=== PATIENT | male | born 1940 | race Caucasian/White ===

== ENCOUNTER 2016-06-19 14:49 | Outpatient (CLI) | payer MEDICARE, OTHER | END 2016-06-19 23:59 | disposition critical access hospital (66) | DX: R09.89 Other specified symptoms and signs involving the circulatory and respiratory systems (principal); R53.83 Other fatigue | CPT/HCPCS: A0425; A0427 ==

== ENCOUNTER 2016-06-19 15:19 | Inpatient (IN) | payer MEDICARE, OTHER ==
[2016-06-19] MEDS ORDERED: ONDANSETRON 4 MG/2 ML VIAL IVP STA (16:08)
[2016-06-19] MEDS ORDERED: ONDANSETRON 4 MG/2 ML VIAL ONE (16:09)
[2016-06-19] MEDS ORDERED: ALBUTEROL NEB 2.5 MG/3 ML INH STA (16:59)
[2016-06-19] MEDS ORDERED: AZITHROMYCIN INJ 500 MG in SODIUM CHLORIDE 0.9% 250 ML IV STA (17:08)
[2016-06-19] MEDS ORDERED: ACETAMINOPHEN 325 MG TABLET PO PRN (17:08)
[2016-06-19] MEDS ORDERED: IPRATROPIUM/ALBUTEROL 3 ML NEB INH PRN (17:08)
[2016-06-19] MEDS ORDERED: PROCHLORPERAZINE 10 MG/2 ML VIAL IVP PRN (17:08)
[2016-06-19] MEDS ORDERED: oxyCODONE 5 MG TABLET PO PRN ×2 (17:08)
[2016-06-19] MEDS ORDERED: ONDANSETRON 4 MG/2 ML VIAL IVP PRN (17:08)
[2016-06-19] MEDS ORDERED: SODIUM CHLORIDE FLUSH 0.9% 10 ML SYRINGE IVP PRN (17:08)
[2016-06-19] MEDS ORDERED: FUROSEMIDE 20 MG/2 ML VIAL IVP SCH (17:08)
[2016-06-19] MEDS ORDERED: MORPHINE 2 MG/ML SYRINGE IVP PRN (17:08)
[2016-06-19] MEDS ORDERED: LORazepam 2 MG/ML SYRINGE IVP PRN (17:08)
[2016-06-19] MEDS ORDERED: IOPAMIDOL-300 100 ML VIAL IVP ONE (17:56)
[2016-06-19] MEDS: methylPREDNISolone SUCCINATE 40 MG/ML VIAL IVP SCH (18:27)
[2016-06-19] MEDS: IPRATROPIUM/ALBUTEROL 3 ML NEB INH SCH (19:20)
[2016-06-19] MEDS ORDERED: PRAMIPEXOLE 0.25 MG TABLET PO SCH (21:00)
[2016-06-19] MEDS: CHLORHEXIDINE GLUCONATE 15 ML UDC PO SCH (21:06)
[2016-06-19] MEDS ORDERED: traZODone 50 MG TABLET PO SCH (21:24)
[2016-06-19] MEDS: SODIUM CHLORIDE FLUSH 0.9% 10 ML SYRINGE IVP SCH (21:30)
[2016-06-20] MEDS: methylPREDNISolone SUCCINATE 40 MG/ML VIAL IVP SCH ×2 (00:28→05:59)
[2016-06-20] MEDS: IPRATROPIUM/ALBUTEROL 3 ML NEB INH SCH ×2 (01:30→09:50)
[2016-06-20] MEDS ORDERED: NICOTINE 21 MG PATCH TOP ONE (05:54)
[2016-06-20] MEDS ORDERED: PANTOPRAZOLE 40 MG VIAL ONE (05:55)
[2016-06-20] MEDS: SODIUM CHLORIDE FLUSH 0.9% 10 ML SYRINGE IVP SCH (05:59)
[2016-06-20] MEDS ORDERED: PANTOPRAZOLE 40 MG VIAL IVP SCH (07:00)
[2016-06-20] MEDS: CHLORHEXIDINE GLUCONATE 15 ML UDC PO SCH (08:54)
[2016-06-20] MEDS ORDERED: ENOXAPARIN 40 MG/0.4 ML SYRINGE SUBQ SCH (09:00)
[2016-06-20] MEDS ORDERED: AZITHROMYCIN INJ 250 MG in SODIUM CHLORIDE 0.9% 250 ML IV SCH (09:00)
[2016-06-20] MEDS ORDERED: NICOTINE 21 MG PATCH TOP SCH (09:00)
[2016-06-20] MEDS ORDERED: FUROSEMIDE 40 MG/4 ML VIAL IVP SCH (09:00)
[2016-06-20] MEDS ORDERED: traZODone 50 MG TABLET PO SCH ×2 (21:00)
== END 2016-06-20 11:20 | disposition home or self-care (01) | DRG 189 ==
DX: J96.22 Acute and chronic respiratory failure with hypercapnia (principal); J44.9 Chronic obstructive pulmonary disease, unspecified; E87.2 Acidosis; R06.89 Other abnormalities of breathing; D68.9 Coagulation defect, unspecified; F17.200 Nicotine dependence, unspecified, uncomplicated; J44.1 Chronic obstructive pulmonary disease with (acute) exacerbation; I50.1 Left ventricular failure, unspecified; K76.6 Portal hypertension; R18.8 Other ascites; J96.21 Acute and chronic respiratory failure with hypoxia; G89.29 Other chronic pain; I87.2 Venous insufficiency (chronic) (peripheral); T40.2X1A Poisoning by other opioids, accidental (unintentional), initial encounter; Y92.003 Bedroom of unspecified non-institutional (private) residence as the place of occurrence of the external cause; E87.70 Fluid overload, unspecified; I27.2 Other secondary pulmonary hypertension; K76.1 Chronic passive congestion of liver; I73.9 Peripheral vascular disease, unspecified; L89.899 Pressure ulcer of other site, unspecified stage; Z66 Do not resuscitate; Z86.711 Personal history of pulmonary embolism; Z99.81 Dependence on supplemental oxygen; Z89.512 Acquired absence of left leg below knee; Z72.0 Tobacco use; Z91.19 Patient's noncompliance with other medical treatment and regimen

== ENCOUNTER 2016-11-26 10:52 | Outpatient (CLI) | payer MEDICARE, OTHER | END 2016-11-26 10:53 | disposition critical access hospital (66) | LOC: EMS 10:52 | PROVIDERS: ATTEND Surgery | DX: R46.4 Slowness and poor responsiveness (principal); R06.00 Dyspnea, unspecified | CPT/HCPCS: A0425; A0427 ==

== ENCOUNTER 2016-11-26 11:21 | Inpatient (IN) | payer MEDICARE, OTHER ==
[2016-11-26] MEDS ORDERED: IPRATROPIUM/ALBUTEROL 3 ML NEB INH STA (11:28)
[2016-11-26] MEDS ORDERED: FUROSEMIDE 40 MG/4 ML VIAL IVP STA (11:33)
--- NOTE | 2016-11-26 11:35 | ED Physician Documentation ---
History of Present Illness - Stated complaint Stated Complaint: ALOC - Chief complaint Chief Complaint: Resp - History obtained from History obtained from: Patient, Family, EMS - History of Present Illness Timing: Today - Additonal information Additional information: 76-year-old male with severe COPD who is oxygen dependent was in his home this morning found by his family unresponsive. He was sitting in his used easy chair where he had slept the night previously. He does take methadone self medicates with it. In route to the hospital the patient was administered a breathing treatment without significant improvement he did subsequently administered 0.8 of Narcan with some improvement in his level of consciousness and his breathing effort at which time it became evident that he had a lot of rhonchi and wheezes. At that point the patient expressed a wish to .The patient is not forthcoming with information about whether he took more of his medication then he was supposed to. He does indicate maybe. The family does come to the bedside and are able to provide further history. They state that yesterday the patient was up and ambulating he does have a prosthesis for his left leg he had walked down onto the [employer] [place] and walked more than 100 feet yesterday. The family states that he has had similar episode previously and at that time this was related to a bowel obstruction. The family also indicates the patient does not want to be intubated. Review of Systems Unable to obtain: Confused PD PAST MEDICAL HISTORY - Past Medical History Past Medical History: Yes Cardiovascular: Peripheral Vascular Disease, Pulmonary embolism Respiratory: COPD Neuro: None Endocrine/Autoimmune: None GI: GERD, GI bleed, Other : Kidney stones HEENT: Other Psych: Depression, Anxiety Musculoskeletal: Other Derm: Other - Past Surgical History Past Surgical History: Yes General: Appendectomy Ortho: Amputation Cardiovascular: Vascular surgery Derm: Skin grafts - Present Medications Home Medications: Ambulatory Orders Medication Instructions Recorded Confirmed oxyCODONE [Roxicodone] 5 mg PO DAILY 08/13/13 06/19/16 traZODone [Desyrel] 100 mg PO DAILY 08/13/13 06/19/16 Pramipexole Di-HCl [Mirapex] 1.5 mg PO QPM 05/12/14 06/19/16 Clindamycin HCl [Cleocin HCl] 300 mg PO QID #20 capsule 12/16/15 06/19/16 Albuterol Sulf [Ventolin Hfa 06/19/16 Inhaler] Ipratropium/Albuterol Sulfate 06/19/16 [Combivent Respimat Inhal [place]] Morphine ER 15 mg PO TID 06/19/16 06/19/16 Oxandrolone [Oxandrin] 06/19/16 oxyCODONE/ACET 5/325 [Percocet 5 1 tab PO Q4HR PRN 06/19/16 06/19/16 mg/325 mg] Furosemide [Lasix] 40 mg PO DAILY #30 tablet 06/20/16 Spironolactone [Aldactone] 25 mg PO DAILY #30 tablet 06/20/16 - Allergies Allergies/Adverse Reactions: Allergies Allergy/AdvReac Type Severity Reaction Status Date / Time cefazolin sodium * AdvReac Nausea Verified 06/15/15 23:20 [From Ancef] cephalexin monohydrate * AdvReac Nausea Verified 06/15/15 23:20 [From Keflex] doxycycline calcium * AdvReac Nausea Verified 06/15/15 23:20 [From Vibramycin] doxycycline hyclate * AdvReac Nausea Verified 06/15/15 23:20 [From Vibramycin] doxycycline monohydrate * AdvReac Nausea Verified 06/15/15 23:20 [From Vibramycin] - Social History Does the pt smoke?: Yes Smoking Status: Current every day smoker Does the pt drink ETOH?: No Does the pt have substance abuse?: No - Immunizations Immunizations are current?: Yes Immunizations: TDAP >10years/unknown - POLST Patient has POLST: No PD ED PE NORMAL - Vitals Vital signs reviewed: Yes (tachy, tachypneic hypotensive and hypoxic) - General General: Well developed/nourished, Other (76-year-old male with his head slumped down his breathing with audible effort and is minimally responsive. He does indicate that he wants to .) - HEENT HEENT: Atraumatic - Neck Neck: Supple, no meningeal sign - Cardiac Cardiac: Other (tachy to 110) - Respiratory Respiratory: Other (Apnea with in his story crackles at the bases and scattered walk wheezes and rhonchi throughout. He does have diminished breath sounds.) - Abdomen Abdomen: Soft, Non tender - Back Back: No CVA TTP, No spinal TTP - Derm Derm: Normal color, Warm and dry, No rash - Extremities Extremities: Other (There is an [id number] amputation on the left side there is edema to the right lower extremity with some venous stasis disease to the anterior calf on the right side.) - Neuro Neuro: No motor deficit, No sensory deficit Results - Vitals Vitals: Vital Signs - 24 hr 11/26/16 11/26/16 11/26/16 11:22 11:34 11:44 Temperature 36.3 C L Heart Rate 107 H 65 61 Respiratory 40 H 32 H 24 Rate Blood Pressure 116/46 L 95/59 L 71/24 L O2 Saturation 89 L 85 L 93 11/26/16 11/26/16 11/26/16 12:01 12:10 13:19 Temperature 36.5 C Heart Rate 62 61 63 Respiratory 26 H 24 21 Rate Blood Pressure 84/35 L 81/28 L 83/45 L O2 Saturation 94 92 99 11/26/16 13:49 Temperature Heart Rate 63 Respiratory 22 Rate Blood Pressure 84/39 L O2 Saturation 100 Oxygen O2 Source Nasal cannula - EKG (time done) 1139 Rate: Rate (enter#) (64) Rhythm: NSR Intervals: RBBB, Other (borderline short MA) Compare to prior EKG: Unchanged from prior EKG (06-19-16) Computer interpretation: Agree with computer - Labs Labs: Laboratory Tests 11/26/16 11/26/16 11/26/16 11:55 12:25 12:50 WBC 13.0 H RBC 4.54 L Hgb 14.2 Hct 44.3 MCV 97.6 H MCH 31.4 H MCHC 32.1 RDW 15.5 H Plt Count 84 L MPV 8.2 Neut # Not Reportable Lymph # Not Reportable [place] # Not Reportable Eos # Not Reportable Baso # Not Reportable Absolute Nucleated RBC Not Reportable Total Counted 100 Band Neuts % (Manual) 7 Metamyelocytes % 1 H Myelocytes % 3 H Nucleated RBC % Not Reportable Neutrophils # (Manual) 11.4 H Lymphocytes # (Manual) 0.7 L Monocytes # (Manual) 0.4 Differential Comment MANUAL DIFFERENTIAL WBC Morphology 1+ SMUDGE CELLS Platelet Estimate DECREASED (<130,000) Platelet Morphology 1+ GIANT PLATELETS RBC Morph Micro Appear 1+ OVALOCYTES Bld Gas Analysis Time 11:55 ABG pH 7.16 L* ABG pCO2 75 H* ABG pO2 335 H* ABG HCO3 26.2 H ABG Total CO2 28.5 ABG O2 Saturation 99 H ABG Base Excess -4.3 L Elia Test POSITIVE O2 Delivery Device NON REBREATHER MASK O2 Liters/Min 10.00 FiO2 75.00 Sodium Potassium Chloride Carbon Dioxide Anion Gap BUN Creatinine Estimated GFR (MDRD) Glucose Calcium Total Bilirubin AST ALT Alkaline Phosphatase Troponin I Total Protein Albumin Globulin Albumin/Globulin Ratio Lipase Urine Color YELLOW Urine Clarity CLEAR Urine pH 6.0 Ur Specific [place] >=1.030 H Urine Protein 100 H Urine Glucose (UA) NEGATIVE Urine Ketones NEGATIVE Urine Occult Blood SMALL H Urine Nitrite NEGATIVE Urine Bilirubin NEGATIVE Urine Urobilinogen 0.2 (NORMAL) Ur Leukocyte Esterase NEGATIVE Urine RBC TNTC H Urine WBC 11-25 H Ur Epithelial Cells MANY Renal Tubular H Ur Squamous Epith Cells MOD Squamous H Urine Bacteria Few Ur Microscopic Review INDICATED Urine Culture Comments NOT INDICATED 11/26/16 11/26/16 13:12 13:12 WBC RBC Hgb Hct MCV MCH MCHC RDW Plt Count MPV Neut # Lymph # [place] # Eos # Baso # Absolute Nucleated RBC Total Counted Band Neuts % (Manual) Metamyelocytes % Myelocytes % Nucleated RBC % Neutrophils # (Manual) Lymphocytes # (Manual) Monocytes # (Manual) Differential Comment WBC Morphology Platelet Estimate Platelet Morphology RBC Morph Micro Appear Bld Gas Analysis Time ABG pH ABG pCO2 ABG pO2 ABG HCO3 ABG Total CO2 ABG O2 Saturation ABG Base Excess Elia Test O2 Delivery Device O2 Liters/Min FiO2 Sodium 139 Potassium 5.4 H Chloride 97 L Carbon Dioxide 30 Anion Gap 12.0 BUN 29 H Creatinine 1.7 H Estimated GFR (MDRD) 40 L Glucose 108 H Calcium 8.4 L Total Bilirubin 1.2 H AST 1662 H ALT 1937 H Alkaline Phosphatase 80 Troponin I 0.34 Total Protein 6.2 L Albumin 3.6 Globulin 2.6 Albumin/Globulin Ratio 1.4 Lipase 36 Urine Color Urine Clarity Urine pH Ur Specific [place] Urine Protein Urine Glucose (UA) Urine Ketones Urine Occult Blood Urine Nitrite Urine Bilirubin Urine Urobilinogen Ur Leukocyte Esterase Urine RBC Urine WBC Ur Epithelial Cells Ur Squamous Epith Cells Urine Bacteria Ur Microscopic Review Urine Culture Comments - Rads (name of study) 1 view chest Radiology: Prelim report reviewed (Impression: 1. Cardiomegaly with vascular congestion. 2. Airways disease.), EMP read indepedently, See rad report Procedures - IVC sono (time) 1130 Bedside IVC sono: IVC measures (cm) (2.8), High CVP, Fluid overload PD MEDICAL DECISION MAKING - ED course Complexity details: reviewed old records, reviewed results, re-evaluated patient , considered differential, d/w patient ED course: 76-year-old male with advanced COPD appears to have possibly overdosed on narcotic and has significant respiratory depression. He has been given Narcan in the field and he has increased his respiratory rate he is more alert but continues to be altered. As time progresses he improves on his LOC and his breathing is eased. His oxygen is turned down and he continues to have good O2 Sat. He appears overloaded on arrival and he is given IV lasix and a martinez is placed. His LFT's are markedly elevate in the thousands and he does take acetomenophen and a level is ordered. l Departure - Departure Disposition: 66 [facility] DC/Xfer Clinical Impression: Severe chronic obstructive pulmonary disease, Altered level of consciousness Congestive heart failure Qualifiers: Congestive heart failure type: combined Congestive heart failure chronicity: acute on chronic Qualified Code(s): I50.43 - Acute on chronic combined systolic (congestive) and diastolic (congestive) heart failure Urinary tract infection Qualifiers: Urinary tract infection type: acute cystitis Hematuria presence: with hematuria Qualified Code(s): N30.01 - Acute cystitis with hematuria Condition: Serious
[2016-11-26] MEDS ORDERED: IPRATROPIUM/ALBUTEROL 3 ML NEB INH ONE (11:40)
[2016-11-26] MEDS ORDERED: FUROSEMIDE 40 MG/4 ML VIAL ONE (11:42)
[2016-11-26 12:05] LABS: ABG PH 7.16 (7.35-7.45)
[2016-11-26 12:06] LABS: ABG BASE EXCESS -4.3 mmol/L (-2.0-3.0); ABG HCO3 26.2 mmol/L (22.0-26.0); ABG OXYGEN SATURATION 99 % (94-98); ABG TCO2 28.5 MMOL/L (21.0-29.0); ALLEN TEST POSITIVE
[2016-11-26 12:08] LABS: ABG O2 DEVICE NON REBREATHER MASK
[2016-11-26 12:09] LABS: ABG PCO2 75 mmHg (34-45); ABG PO2 335 mmHg (80-100)
[2016-11-26 12:34] LABS: BASOPHILS % (AUTO) 1.4 %; HCT - HEMATOCRIT 44.3 % (42.0-52.0); HGB - HEMOGLOBIN 14.2 g/dL (14.0-18.0); LYMPHOCYTES % (AUTO) 2.9 %; MEAN CORPUSCULAR HEMOGLOBIN 31.4 pg (27.0-31.0); MEAN CORPUSCULAR HGB CONC 32.1 g/dL (32.0-36.0); MEAN CORPUSCULAR VOLUME 97.6 fL (80.0-94.0); MEAN PLATELET VOLUME 8.2 fL (7.4-11.4); MONOCYTES % (AUTO) 2.2 %; NEUTROPHILS % (AUTO) 92.5 %; RED BLOOD COUNT 4.54 10^6/uL (4.70-6.10); RED CELL DISTRIBUTION WIDTH 15.5 % (12.0-15.0)
[2016-11-26 13:01] LABS: BAND NEUTROPHILS % (MANUAL) 7 %; LYMPHOCYTES % (MANUAL) 5 %; NEUTROPHILS % (MANUAL) 81 %; TOTAL CELLS COUNTED 100
[2016-11-26 13:02] LABS: NP AUTO DIFFERENTIAL? YES; NP MAN DIFFERENTIAL? NO; PLATELET ESTIMATE, MANUAL DECREASED (<130,000) (NORMAL); PLATELET MORPHOLOGY 1+ GIANT PLATELETS (NORMAL)
[2016-11-26 13:21] LABS: BILIRUBIN,URINE NEGATIVE (NEGATIVE)
[2016-11-26 13:22] LABS: UA w/ MICROSCOPIC CHARGE YES
[2016-11-26 13:31] LABS: UR CULTURE IF IND NOT INDICATED
--- NOTE | 2016-11-26 13:37 | XRAY Preliminary Report ---
Exam: XR Chest 1 View IMPRESSION: 1. Cardiomegaly with vascular congestion 2. Airways disease [facility] SITE ID: [id number]
[2016-11-26 13:40] LABS: ALBUMIN/GLOBULIN RATIO 1.4 (1.0-2.2); BILIRUBIN,TOTAL 1.2 mg/dL (0.2-1.0); CALCIUM 8.4 mg/dL (8.5-10.3); CREATININE 1.7 mg/dL (0.6-1.2); POTASSIUM 5.4 mmol/L (3.5-5.0); TOTAL PROTEIN 6.2 g/dL (6.7-8.2)
--- NOTE | 2016-11-26 13:40 | XRAY Report ---
EXAM: CHEST RADIOGRAPHY EXAM DATE: 11/26/2016 01:16 PM. CLINICAL HISTORY: Dyspnea. COMPARISON: Chest radiograph 06/20/2016. TECHNIQUE: 1 view. FINDINGS: Lungs/Pleura: Vascular congestion. Increased lung markings. Bronchial cuffing. Subsegmental atelectas is at the left lung base. Mediastinum: Stable, enlarged cardiac silhouette Other: Surgical clips over the left upper quadrant. IMPRESSION: 1. Cardiomegaly with vascular congestion 2. Airways disease [facility] Referring Provider Line: [phone] SITE ID: [id number]
[2016-11-26] MEDS ORDERED: levoFLOXacin 750 MG/150 ML 750 MG/150 ML BAG IV STA (14:04)
[2016-11-26] MEDS ORDERED: levoFLOXacin 750 MG/150 ML 750 MG/150 ML BAG IV ONE (14:10)
[2016-11-26] MEDS ORDERED: IPRATROPIUM 0.2 MG/ML NEB INH PRN (14:31)
[2016-11-26] MEDS ORDERED: PROCHLORPERAZINE 10 MG/2 ML VIAL IVP PRN (14:31)
[2016-11-26] MEDS ORDERED: SODIUM CHLORIDE FLUSH 0.9% 10 ML SYRINGE IVP PRN (14:31)
[2016-11-26] MEDS ORDERED: SODIUM CHLORIDE 0.9% 1,000 ML IV SCH ×3 (15:00→22:59)
[2016-11-26 15:13] LABS: INR 1.5 (0.8-1.2); PT - PROTHROMBIN TIME 16.5 secs (9.9-12.6)
[2016-11-26] MEDS: SODIUM CHLORIDE 0.9% 1,000 ML IV SCH ×3 (18:52→21:23)
--- NOTE | 2016-11-26 19:01 | HISTORY & PHYSICAL EXAMINATION ---
DATE OF ADMISSION: 11/26/2016 HISTORY OF PRESENT ILLNESS: This is a 76-year-old white male with a history of severe COPD requiring BIPAP and oxygen at home at night, history of pulmonary embolism remotely, history of left lower extremity [id number] amputation for venous insufficiency and thrombophlebitis. He also has a history of chronic pain and uses methadone as well as narcotics for pain control and he doses his own medications. The patient was admitted here 5 months ago with "difficulty to arouse" and was felt to be over-medicating himself with his narcotics, he had a COPD exacerbation requiring BiPAP treatment and diagnosed with cor pulmonale, which was determined by echo along with pulmonary hypertension, PA pressure 43 mmHg. At that admission, he was still felt to be volume overloaded and in respiratory distress but demanded to be discharged before he was stabilized. The patient presents now after having been found unresponsive in a recliner by his family. The day before he was able to ambulate, he put on his leg prosthesis and was working around his boat. That is the last thing that he can remember doing (he stated, when I interview him today). Apparently he felt weak after the boat work according to the family's report to the ER doctor, and he was able to go to sleep, but found minimally responsive in his recliner and with a blood pressure of 80 palpable by the ambulance personnel. He received 800 mL of saline in the ambulance. In the emergency room, he was given Narcan and noted to be in severe respiratory distress and required multiple inhaler and nebulizer treatments. He was acidotic and hypercapnic on a blood gas, but this slowly improved over several hours to where he was breathing comfortably, although he was not fully alert and awake. According to the family, there had been no other new symptoms. There were no new medications. There was no recent travel or exposure to anyone that was sick. There was no fever, cough, new leg edema or other complaints, according to the family. MEDICATIONS AT HOME: 1. Albuterol sulfate inhaler, unknown dose. 2. Combivent Respimat inhaler, unknown dosage and frequency. 3. Clindamycin 300 q.i.d. for unknown diagnosis and duration. 4. Lasix 40 mg p.o. daily. 5. Aldactone 25 mg p.o. daily. 6. Methadone unknown dose and frequency 7. Oxandrolone unknown dose and frequency. 8. Percocet 5/325 mg p.o. q.4h. p.r.n.. 9. Mirapex 1.5 mg p.o. q.p.m.. 10. Morphine extended release 15 mg p.o. daily. 11. Oxycodone 5 mg p.o. unknown frequency. 12. Trazadone 100 mg p.o. daily. ALLERGIES: 1. CEFAZOLIN. 2. ALL THE CEPHALOSPORINS. 3. DOXYCYCLINE. THE REACTIONS TO ALL OF THESE MEDICATIONS ARE PROBABLY NAUSEA ACCORDING TO THE ER RECORD. REVIEW OF SYSTEMS: Once the patient was more awake and already in the ICU I was able to complete a comprehensive review of systems and the pertinent positives or negatives are stated in the HPI. The remainder of review of systems is negative. FAMILY HISTORY: The patient's brother had pulmonary embolism. There is no family history of heart disease or diabetes or cancer. SOCIAL HISTORY: The patient smokes half pack a day, he does not use any alcohol or illicit drugs. He lives with his and daughter. PHYSICAL EXAMINATION: GENERAL: In the emergency room when I saw him revealed a blood pressure of 89/ 40 and on repeat 100/40 with pulse of 70-80 in sinus rhythm and the patient was in no respiratory distress. His skin was warm and dry, but he was comatose with nearly no response to sternal rub. In the ICU, approximately 2-1/2 hours later, the patient had a blood pressure of 85/40 with a pulse of 59 in sinus bradycardia with first degree block and intermittent Mobitz I second degree block (Wenckebach block). Skin was warm and dry and he was able to speak, alert and oriented x2 to person and place, but not to time. The skin showed tenting and the oral mucosa was dry. HEENT: Edentulous NECK: No carotid bruits. No thyromegaly. No lymphadenopathy. No JVD at a 90 degree angle (upright). CHEST: Normal breath sounds bilaterally with a scattered wheeze in the right base only. No rhonchi. Heart sounds normal. No audible murmurs. CARDIOVASCULAR: PMI was vertically displaced. There is no gallop and there is no RV heave. No audible murmur. ABDOMEN: Soft, nontender. Positive bowel sounds. No organomegaly. EXTREMITIES: Show the left leg has a BKA and the stump is clean. The right leg has venous stasis changes of the eng and foot and 2+ edema to the mid thighs. He has normal right-sided dorsalis pedis pulse. There is a healed wound over the right mid eng and no skin breakdown. NEUROLOGIC: Neurologically he is now grossly intact on the 2nd exam. LABORATORY: Sodium 139, potassium 5.4, BUN 29, creatinine 1.7 (this compares to May 2016 BUN of 27, creatinine 0.7). His glucose is 108, calcium 8.4, bilirubin 1.2, AST 1662, ALT 1937. Troponin 0.34, lipase normal. Albumin normal at 3.6. White blood count 30.0 with very abnormal differential that was done manually, which shows 1+ smudge cells, 1+ giant platelets, 1+ anisocytosis, 1+ polychromasia, 2+ macrocytosis, and 1+ ovalocytes. The platelet count is very low at 84, which compares to a platelet count in May of this year of 195%. The percent neutrophils is high at 11.4% and he has 7% bands. INR 1.5, which compares to an INR of 1.0 in 05/2016. IMAGING: CHEST X-RAY: Cardiomegaly with atelectasis in the left lung base and vascular congestion. EKG: Normal sinus rhythm with a rate of 64 with first degree block and right bundle branch block and a vertical QRS axis. He has T-wave inversions V1 through V3 and flat T wave in V4. IMPRESSION/DIAGNOSES: 1. Altered mental status, which improved after Narcan and fluid resuscitation for hypotension. 2. Hypotension with evidence of dehydration by virtue of skin tenting, dry oral mucosa, elevated BUN and creatinine. R/O septic shock and cardiogenic shock. 3. History of cor pulmonale by echo done 5 months ago, which may be the cause of the elevated liver tests ie. passive liver congestion, as well as leg edema seen. 4. Thrombocytopenia and abnormal white blood cell morphology - rule out DIC versus acute myelogenous process such as myelodysplastic syndrome vs liver etiology. 5. Acute on chronic respiratory distress with evidence of hypoxemia and hypercapnia, corrected with Narcan administration. 6. Chronic pain with multiple narcotic dosages and Methadone use. The patient has had suspected narcotic overdose in the past. 7. Peripheral vascular disease (unclear if this is arterial or venous) with a left BKA. 8. Abnormal LFT's and elevated bilirubin; consider shock liver vs passsive congestion from cor pulmonale vs toxicity from Tylenol (T & C) use vs gallblader etiology. 9. New renal insufficiency. Possibly from hypotension, dehydration vs hepato- renal syndrome. PLAN: Admit to the ICU in guarded condition. Begin IV fluids, bolus then at a rate of 125 an hour using saline for volume replacement. Hold his diuretics at this time. If saline alone and p.o. intake does not improve his blood pressure then pressors will be needed for hemodynamic support. Culture of the patient, sputum and blood to rule out sepsis as the cause of the hypotension. Cycle cardiac enzymes to rule out acute coronary event as the cause of the hypotension and respiratory failure. Follow his electrolytes, especially the hyperkalemia, follow his renal indices during hydration given the acute renal failure. Follow his CBC and differential. Because of the low platelet count, no Lovenox or heparin will be used for DVT prophylaxis, SCDs will be ordered instead. Hepatitis panel will be sent as well as toxicology screen for acetaminophen given the elevated liver tests. The patient has a DNR AND DNI status, therefore, advanced care planning (ACP) is not necessary at this time. Obtain an echo to evaluate his LV and RV contractility. Only use a portion of his narcotic pain medications, watch for withdrawal from narcotics. JOB #: [id number] EXT JOB #:[id number] ASIM
[2016-11-26] MEDS: PANTOPRAZOLE 40 MG VIAL IVP SCH (20:16)
[2016-11-26] MEDS ORDERED: METHADONE 5 MG TABLET PO ONE (21:00)
[2016-11-26] MEDS ORDERED: MORPHINE ER 15 MG TABLET PO SCH (22:00)
[2016-11-26] MEDS ORDERED: SODIUM CHLORIDE 0.9% 1,000 ML IV ONE (22:18)
[2016-11-26] MEDS: methylPREDNISolone SUCCINATE 40 MG/ML VIAL IVP SCH (22:26)
[2016-11-26] MEDS: SODIUM CHLORIDE FLUSH 0.9% 10 ML SYRINGE IVP SCH (22:26)
[2016-11-27 04:44] LABS: BASOPHILS % (AUTO) 0.2 %; HGB - HEMOGLOBIN 13.2 g/dL (14.0-18.0); LYMPHOCYTES % (AUTO) 2.8 %; MEAN CORPUSCULAR HEMOGLOBIN 31.4 pg (27.0-31.0); MEAN CORPUSCULAR HGB CONC 32.2 g/dL (32.0-36.0); MEAN CORPUSCULAR VOLUME 97.5 fL (80.0-94.0); MEAN PLATELET VOLUME 8.9 fL (7.4-11.4); MONOCYTES % (AUTO) 2.7 %; NEUTROPHILS % (AUTO) 94.3 %; RED CELL DISTRIBUTION WIDTH 15.1 % (12.0-15.0); UNCORRECTED WHITE BLOOD COUNT 10.2 x10^3/uL; WHITE BLOOD COUNT 10.2 x10^3/uL (4.8-10.8)
[2016-11-27 05:23] LABS: BILIRUBIN,DIRECT 0.2 mg/dL (0.1-0.5); BILIRUBIN,TOTAL 0.6 mg/dL (0.2-1.0); BUN - BLOOD UREA NITROGEN 42 mg/dL (6-20); CALCIUM 7.5 mg/dL (8.5-10.3); CARBON DIOXIDE - CO2 28 mmol/L (21-32); CHLORIDE 97 mmol/L (101-111); CREATININE 2.3 mg/dL (0.6-1.2); GFR - MDRD 28 (>89); GLUCOSE 131 mg/dL (70-100); POTASSIUM 5.9 mmol/L (3.5-5.0); SODIUM 132 mmol/L (135-145); TOTAL PROTEIN 6.2 g/dL (6.7-8.2)
[2016-11-27] MEDS ORDERED: ACETYLCYSTEINE IV ONE ×2 (05:30→12:00)
[2016-11-27] MEDS ORDERED: DEXTROSE 5% IV SCH ×3 (05:30→07:30)
[2016-11-27] MEDS ORDERED: ACETYLCYSTEINE IV SCH ×3 (05:30→07:30)
[2016-11-27] MEDS ORDERED: DEXTROSE 5% IV ONE ×2 (05:30→12:00)
[2016-11-27] MEDS ORDERED: DEXTROSE 50% ABBOJECT 25 GM/50 ML SYRINGE IVP SCH (05:34)
[2016-11-27] MEDS ORDERED: CALCIUM GLUCONATE 2,000 MG in SODIUM CHLORIDE 0.9% 100ML 100 ML IV SCH (05:34)
[2016-11-27] MEDS ORDERED: INSULIN REGULAR HUMAN 100 UNIT/1 ML 10 ML MDV IVP SCH (05:34)
[2016-11-27 05:38] LABS: BAND NEUTROPHILS % (MANUAL) 2 %; LYMPHOCYTES % (MANUAL) 1 %; NEUTROPHILS % (MANUAL) 96 %; NP AUTO DIFFERENTIAL? YES; NP MAN DIFFERENTIAL? NO; PLATELET ESTIMATE, MANUAL DECREASED (<130,000) (NORMAL); TOTAL CELLS COUNTED 100
[2016-11-27] MEDS: methylPREDNISolone SUCCINATE 40 MG/ML VIAL IVP SCH ×3 (05:44→21:38)
[2016-11-27] MEDS: SODIUM CHLORIDE FLUSH 0.9% 10 ML SYRINGE IVP SCH ×3 (05:45→21:17)
[2016-11-27] MEDS: SODIUM CHLORIDE 0.9% 1,000 ML IV SCH ×3 (06:05→08:48)
[2016-11-27 06:45] LABS: ALBUMIN/GLOBULIN RATIO 1.4 (1.0-2.2); BILIRUBIN,TOTAL 0.6 mg/dL (0.2-1.0); BUN - BLOOD UREA NITROGEN 38 mg/dL (6-20); CALCIUM 7.5 mg/dL (8.5-10.3); CARBON DIOXIDE - CO2 25 mmol/L (21-32); CHLORIDE 96 mmol/L (101-111); CREATININE 2.2 mg/dL (0.6-1.2); GFR - MDRD 29 (>89); GLUCOSE 127 mg/dL (70-100); MAGNESIUM 1.9 mg/dL (1.7-2.8); PHOSPHORUS 6.9 mg/dL (2.5-4.6); SODIUM 132 mmol/L (135-145)
[2016-11-27 06:49] LABS: CALCIUM, IONIZED 0.96 mmol/L (1.15-1.33); VBG PH 7.243 (7.31-7.41)
--- NOTE | 2016-11-27 08:47 | Ultrasound Preliminary Report ---
Exam: US Abdomen Complete IMPRESSION: 1. Severe gallbladder wall thickening, 13 mm with pattern consistent with edema of the wall. Acute ch olecystitis is a primary consideration. Area of more focal hypodensity within the wall could represen t more prominent edema although possibility of gangrenous gallbladder or intramural abscess are not e xcluded. 2. No gallstones or sonographic Multani sign demonstrated although the patient reportedly is on pain m eds and therefore a negative sonographic Multani sign cannot be excluded. 3. Very mild perihepatic ascites. 4. Mild hepatomegaly with pattern suggesting diffuse fatty infiltration of the liver. [facility] The above findings were discussed with Dr. Story by Dr. Luiz Moe at 08:46 hrs on 11/27/16. SITE ID: [id number]
--- NOTE | 2016-11-27 08:50 | Ultrasound Report ---
EXAM: ABDOMEN ULTRASOUND EXAM DATE: 11/27/2016 07:38 AM. CLINICAL HISTORY: Elevated liver enzymes . COMPARISON: CT abdomen pelvis 06/24/2015. TECHNIQUE: Real-time scanning was performed with static images obtained. FINDINGS: Liver: Diffuse increased echogenicity consistent with fatty infiltration. No mass. Mildly enlarged, 1 8.3 cm. Main portal vein flow: Hepatopetal. Gallbladder: Severe gallbladder wall thickening with edematous/striated appearance, measuring up to 1 3 mm. Area of more focal hypodensity which appears to be within the wall could represent more promine nt focal edema although focal area of gangrenous change or even small intramural abscess cannot defin itely be excluded. No stones demonstrated. No sonographic Multani's sign although the patient reported ly is on pain medications and therefore a false negative sonographic Multani sign cannot be excluded. Biliary System: Common bile duct measures 4.6 mm. No intrahepatic or extrahepatic ductal dilatation. Pancreas: Not visualized, obscured by bowel gas. Kidneys: Right: 12.5 cm longitudinally. Normal. No contour-deforming mass, stones, or hydronephrosis. Left: 12.1 cm longitudinally. Normal. No contour-deforming mass, stones, or hydronephrosis. Spleen: Maximum diameter 10.1 cm. Normal in size and echotexture. Aorta and Inferior Vena Cava: Unremarkable although the distal aorta is not visualized. Other: Very mild ascites near the right hepatic lobe. IMPRESSION: 1. Severe gallbladder wall thickening, 13 mm with pattern consistent with edema of the wall. Acute ch olecystitis is a primary consideration. Area of more focal hypodensity within the wall could represen t more prominent edema although possibility of gangrenous gallbladder or intramural abscess are not e xcluded. 2. No gallstones or sonographic Multani sign demonstrated although the patient reportedly is on pain m eds and therefore a negative sonographic Multani sign cannot be excluded. 3. Very mild perihepatic ascites. 4. Mild hepatomegaly with pattern suggesting diffuse fatty infiltration of the liver. [facility] The above findings were discussed with Dr. Story by Dr. Luiz Moe at 08:46 hrs on 11/27/16. Referring Provider Line: [phone] SITE ID: [id number]
[2016-11-27] MEDS ORDERED: traZODone 50 MG TABLET PO SCH (09:00)
[2016-11-27] MEDS ORDERED: oxyCODONE 5 MG TABLET PO SCH (09:00)
[2016-11-27] MEDS: METHADONE 5 MG TABLET PO SCH (09:31)
--- NOTE | 2016-11-27 09:36 | XRAY Report ---
FRONTAL CHEST: 11/27/2016 CLINICAL INDICATION: Followup COPD. COMPARISON: 11/26/2016 FINDINGS: Frontal view of the chest demonstrates stable cardiomegaly. Pulmonary vascular congestion and COPD are stable. No new consolidation, effusion, or pneumothorax is evident. IMPRESSION: STABLE MILD CONGESTIVE FAILURE AND COPD. JOB #: [id number] EXT JOB #:[id number]
[2016-11-27] MEDS: PANTOPRAZOLE 40 MG VIAL IVP SCH ×2 (09:46→21:13)
--- NOTE | 2016-11-27 11:39 | CONSULTATION NOTE ---
DATE OF CONSULTATION: 11/27/2016 00:00:00 HISTORY OF PRESENT ILLNESS: This is a 76-year-old male who was admitted to the emergency intensive care unit yesterday for altered mental status and hypotension. 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 The patient has been admitted to the intensive care unit for resuscitation and has responded well. His mental status has normalized and his blood pressure is stable. He denies any abdominal pain. He does not remember being brought to the emergency department, but is aware that he was brought by his family because of altered mental status. He acknowledges that he takes large doses of pain medication and believes this is the etiology of his change in mental status. Since admission, he has remained afebrile. He did undergo an ultrasound of the abdomen upon admission secondary to elevated liver enzymes on admission, which demonstrates severe gallbladder wall thickening at 13 mm, concerning for acute cholecystitis. There were no gallstones seen and the CBD measures 4.6 mm and is not dilated. There is no evidence of intra or extrahepatic dilatation. The liver appears enlarged with fatty infiltrates. Surgical consultation was obtained for possible acalculous cholecystitis or gangrenous gallbladder. Upon my evaluation of the patient, he is resting in bed comfortably and denies any abdominal pain, nausea or vomiting. He is hemodynamically stable with a normal blood pressure, normal heart rate and is afebrile. Prior to admission to the ER he denies abdominal pain, nausea or emesis. The patient is also demonstrating elevated troponins, which is concerning for ongoing cardiac ischemic issues. He denies chest pain. PAST MEDICAL HISTORY: Severe COPD on BiPAP, chronic pain on large doses of methadone, history of pulmonary embolism, history of vena caval thrombosis with vena caval ligation ?, history of left BKA, cor pulmonale. PAST SURGICAL HISTORY: As per the patient, he underwent a colon resection with an ostomy followed by ostomy reversal, a repair of an esophageal perforation, a vena caval ligation and an attempt of reversal of this. I do not have any of the surgical records available to me. HOME MEDICATIONS 1. Trazodone 100 mg daily. 2. Percocet 5/325 q.4 hours. 3. Roxicodone 5 mg daily. 4. Spironolactone 25 mg daily. 5. Oxandrolone morphine extended release 15 mg 3 times daily. 6. Ipratropium Albuterol sulfate. 7. Lasix 40 mg daily. 8. Clindamycin 300 mg 4 times daily. 9. Ventolin daily. ALLERGIES TO MEDICATIONS 1. ANCEF. 2. CEPHALEXIN. 3. DOXYCYCLINE. SOCIAL HISTORY: The patient's and daughter are at the bedside. They deny any significant history of alcohol abuse. PHYSICAL EXAMINATION VITAL SIGNS: Temperature is 37.4, blood pressure is 118/101, heart rate 77, respiratory rate is 20, O2 saturation is 92% on 3 liters nasal cannula. GENERAL: The patient is awake, alert, and oriented x3, in no acute distress. He states that he only wants to remain comfortable and does not want any further testing. CARDIOVASCULAR: Regular rate and rhythm. CHEST: Clear to auscultation bilaterally. ABDOMEN: Soft, nondistended, nontender to palpation with negative Multani sign. There is venous congestion on the anterior abdominal wall. EXTREMITIES: Left BKA stump. No pedal edema. LABORATORY VALUES: White blood cell count on admission 13, today 10.2, hemoglobin 13, hematocrit 41, platelets 72. INR on admission 1.5. Sodium 132, potassium 6, chloride 96, bicarbonate 25, BUN 38, creatinine 2.2, increased on admission from 1.7, glucose 127. Total bilirubin 0.6, direct 0.2. AST on admission 1662. Today is greater than 5200. ALT 1937 on admission, today 4486. Alkaline phosphatase is 81. Troponin on admission 0.34. This has progressively increased to 0.66, 1.04, and now 1.26. Lipase is 36. ASSESSMENT: This is a 76-year-old male admitted to the intensive care unit for altered mental status and hypotension with hepatic transaminitis and and acute renal failure. PLAN: The patient has no signs and symptoms to correlate with gangrenous gallbladder or acalculous cholecystitis. He is completely asymptomatic from an abdominal standpoint. His liver enzymes suggest an intrinsic liver disorder. Due to his verbalized history of a ligated inferior vena cava, this could be secondary to hepatic vein thrombosis and this should be ruled out. Other etiologies such as acetaminophen toxicity are possible due to his intake of Percocet daily. In any case, his gallbladder is not likely the source of his liver failure and I do not recommend proceeding with any surgical intervention for this. If further concerns for possible gallbladder etiology a HIDA scan could be ordered. Additionally, an ultrasound documenting hepatic and portal blood flow would be helpful to rule out any venous thrombosis. Renal failure is likely in conjunction with the patient's liver failure. If his renal and liver failure persists, transfer to a center of higher acuity which can accommodate possible dialysis and management of acute liver failure may be warranted. JOB #: [id number] EXT JOB #:[id number] ASIM
[2016-11-27 11:52] LABS: INR 1.7 (0.8-1.2)
[2016-11-27] MEDS: diazePAM 5 MG TABLET PO SCH (13:06)
[2016-11-27] MEDS: IPRATROPIUM/ALBUTEROL 3 ML NEB INH PRN (13:25)
--- NOTE | 2016-11-27 16:09 | PROVIDER PROGRESS NOTE ---
Assessment/Plan - Problem List (1) Hypotension Assessment/Plan: Resolved with approx. 6 L fluid rescusitation. No worsening of respiratory status with this fluid replacement. Diet advanced and no restrictions now that he has his dentures. Will transfer out of ICU. (2) Altered level of consciousness Assessment/Plan: Resolved after Narcan and rehydration (3) Severe chronic obstructive pulmonary disease Assessment/Plan: No SOB at rest. Pt uses BiPAP at hs, was ordered for here Stable respiratory status on present meds, even with 5 L fluid rescusitation ad increase in weight Continue inhalers and steroids (4) Liver failure without hepatic coma Qualifiers: Liver failure chronicity: unspecified chronicity Qualified Code(s): K72.90 - Hepatic failure, unspecified without coma Assessment/Plan: LFTs have quadrupled since yesterday's elevated results. Abd sonogram showed enlarged liver and abnormal GB with very thick hu and poss gangrenous GB Surg consult requested and Dr Scanlon has confirmed that Pt does not have a "hot gallbladder". Pt told Dr Scanlon that he had "IVC ligation and a reversal was attempted but unsuccessful". Dr Scanlon recommended ultrasound of IVC, Hepatic and Portal veins to evaluate for Budd Chiari syndrome. Will order that. Acetylcysteine started for liver failure. If LFTs continue to increase, prognosis is very poor, this was discussed with Pt , and daughter at his bedside. (5) ARF (acute renal failure) Assessment/Plan: Stable but abnormal creat. Poss due to hypotension, hepato-renal or toxicity from something (unclear meds) Continue to monitor. Watch K If renal function worsens, he stated he would not want hemodialysis. (6) Acute non-ST elevation myocardial infarction (NSTEMI) Assessment/Plan: This is likely from demnd ischemia due to hypotension. Echo pending. Now that BP normalized, will start B-1 selective B-vern, Nitrates. No statin due to abnormal LFTs. No ASA due to low and dropping platelets. (7) Chronic pain Assessment/Plan: Pt getting Methadone. Will add Valium, as he requests anxiolytic as well, but watch for respiratory depression. (8) Thrombocytopenia Assessment/Plan: Etiology unclear. Continue to monitor. No Lovenox or ASA due to low plts - Current Meds Current Meds: Current Medications Generic Name Dose Route Start Last Admin Trade Name Freq PRN Reason Stop Dose Admin Albuterol/Ipratropium 3 ml 11/27/16 05:16 11/27/16 13:25 Duoneb INH 3 ml Q4HR PRN Administration Wheezing Diazepam 5 mg 11/27/16 13:00 11/27/16 13:06 Valium PO 5 mg DAILY YANN Administration Acetylcysteine 7,150 mg/ 1,035.75 mls @ 62.5 mls/hr 11/27/16 12:00 11/27/16 12:38 Dextrose IV 11/28/16 04:34 62.5 mls/hr ONCE ONE Administration Sodium Chloride 1,000 mls @ 30 mls/hr 11/27/16 08:39 11/27/16 08:48 Normal Saline 0.9% IV 30 mls/hr .[id number] YANN Administration Methadone HCl 5 mg 11/27/16 09:00 11/27/16 09:31 PO Not Given DAILY YANN Methylprednisolone 40 mg 11/26/16 22:00 11/27/16 14:14 Solu-Medrol (40mg Vial) IVP 40 mg Q8HR YANN Administration Pantoprazole Sodium 40 mg 11/26/16 21:00 11/27/16 09:46 Protonix IVP 40 mg BID YANN Administration Sodium Chloride 10 ml 11/26/16 22:00 11/27/16 14:15 Normal Saline Flush 0.9% IVP 10 ml Q8HR YANN Administration Trazodone HCl 100 mg 11/27/16 09:00 11/27/16 09:31 Desyrel PO Not Given DAILY YANN - Lab Result Fish Bone Diagrams: 11/27/16 04:30 11/27/16 05:54 - Additional Planning My Orders: My Active Orders 11/26/16 18:58 BIPAP [BIPAP/CPAP - RT] [RC] 11/27/16 General Surgery Consult [CONS] Routine Abdomen Limited [US] Routine 11/27/16 03:56 RT [Nebulizer/MDI Tx.] [RC] .q6prn 11/27/16 08:00 Echo Transthoracic Complete [ECHO] Routine 11/27/16 08:39 Sodium Chloride 0.9% [Normal Saline 0.9%] 1,000 ml IV 30 mls/hr 11/27/16 09:00 Methadone 5 mg PO DAILY traZODone [Desyrel] 100 mg PO DAILY 11/27/16 13:00 diazePAM [Valium] 5 mg PO DAILY 11/27/16 21:00 Pramipexole Di-HCl [Mirapex] 1.5 mg PO QPM 11/27/16 Lunch DIET [Soft Mechanical Diet] [DIET] 11/28/16 05:00 CMP, RFLX TO IONIZED CA IF [CHEM] DAILYLAB MAGNESIUM [CHEM] DAILYLAB PHOSPHORUS [CHEM] DAILYLAB Subjective - Subjective Patient Reports: Feeling Better, Other (Pt anxious about his condition and requesting "something for anxiety") Objective Vital Signs: Vital Signs - 24 hr 11/26/16 11/26/16 11/26/16 17:00 18:00 19:00 Temperature 36.6 C Heart Rate Heart Rate [ 66 64 60 Monitoring electrodes] Respiratory 20 16 16 Rate Blood Pressure 91/70 110/97 H 94/62 [Left Brachial artery] Blood Pressure [Right Radial artery] O2 Saturation 96 95 94 11/26/16 11/26/16 11/26/16 20:00 21:00 22:00 Temperature Heart Rate Heart Rate [ 61 61 57 L Monitoring electrodes] Respiratory 19 13 18 Rate Blood Pressure 122/45 L 91/42 L 93/40 L [Left Brachial artery] Blood Pressure [Right Radial artery] O2 Saturation 96 99 98 11/26/16 11/27/16 11/27/16 23:00 00:00 00:30 Temperature 37.1 C Heart Rate Heart Rate [ 58 L 60 Monitoring electrodes] Respiratory 16 18 Rate Blood Pressure 98/65 87/45 L 105/55 L [Left Brachial artery] Blood Pressure [Right Radial artery] O2 Saturation 95 95 11/27/16 11/27/16 11/27/16 01:00 02:00 03:00 Temperature 36.9 C Heart Rate Heart Rate [ 62 60 61 Monitoring electrodes] Respiratory 20 20 13 Rate Blood Pressure 101/54 L 95/50 L 90/56 L [Left Brachial artery] Blood Pressure [Right Radial artery] O2 Saturation 95 94 93 11/27/16 11/27/16 11/27/16 03:50 04:00 05:00 Temperature Heart Rate 60 Heart Rate [ 61 60 Monitoring electrodes] Respiratory 16 18 20 Rate Blood Pressure 98/52 L 102/55 L [Left Brachial artery] Blood Pressure [Right Radial artery] O2 Saturation 98 98 11/27/16 11/27/16 11/27/16 06:00 07:00 07:50 Temperature 37.4 C Heart Rate 80 Heart Rate [ 80 79 Monitoring electrodes] Respiratory 16 20 28 H Rate Blood Pressure 114/57 L 136/60 H [Left Brachial artery] Blood Pressure [Right Radial artery] O2 Saturation 97 93 11/27/16 11/27/16 11/27/16 08:00 09:00 10:00 Temperature Heart Rate Heart Rate [ 73 77 75 Monitoring electrodes] Respiratory 18 20 15 Rate Blood Pressure [Left Brachial artery] Blood Pressure 127/67 118/101 H 140/94 H [Right Radial artery] O2 Saturation 94 92 92 11/27/16 11/27/16 11/27/16 10:59 12:00 13:00 Temperature Heart Rate Heart Rate [ 73 76 80 Monitoring electrodes] Respiratory 18 18 22 Rate Blood Pressure [Left Brachial artery] Blood Pressure 153/70 H 151/64 H 141/73 H [Right Radial artery] O2 Saturation 92 92 97 11/27/16 11/27/16 11/27/16 13:25 14:00 15:00 Temperature 37.2 C Heart Rate 76 Heart Rate [ 80 73 Monitoring electrodes] Respiratory 17 14 24 Rate Blood Pressure [Left Brachial artery] Blood Pressure 141/73 H 145/61 H [Right Radial artery] O2 Saturation 90 L 90 L Oxygen O2 Source Nasal cannula I&O (Last 24 Hrs): Intake and Output Totals x24h 11/25/16 11/26/16 11/27/16 23:59 23:59 23:59 Intake Total 1600 450 Output Total 45 97 Balance 1555 353 General: Alert, Oriented x3 HEENT: Mucous membr. moist/pink Neck: Supple, Other ((+) JVD at 90 degree angle) Cardiovascular: Regular rate Respiratory: Breath sounds nml Abdomen: Soft, No tenderness Extremities: Other (R BKA, L unchanged venous stasis changes and 2+ edema to mid eng) - Results Results: Laboratory Results WBC 10.2 x10^3/uL (4.8-10.8) 11/27/16 04:30 RBC 4.20 10^6/uL (4.70-6.10) L 11/27/16 04:30 Hgb 13.2 g/dL (14.0-18.0) L 11/27/16 04:30 Hct 41.0 % (42.0-52.0) L 11/27/16 04:30 MCV 97.5 fL (80.0-94.0) H 11/27/16 04:30 MCH 31.4 pg (27.0-31.0) H 11/27/16 04:30 MCHC 32.2 g/dL (32.0-36.0) 11/27/16 04:30 RDW 15.1 % (12.0-15.0) H 11/27/16 04:30 Plt Count 72 10^3/uL (130-450) L 11/27/16 04:30 MPV 8.9 fL (7.4-11.4) 11/27/16 04:30 Neut # Not Reportable 11/27/16 04:30 Lymph # Not Reportable 11/27/16 04:30 Cooper # Not Reportable 11/27/16 04:30 Eos # Not Reportable 11/27/16 04:30 Baso # Not Reportable 11/27/16 04:30 Absolute Nucleated RBC Not Reportable 11/27/16 04:30 Total Counted 100 11/27/16 04:30 Band Neuts % (Manual) 2 % (0-10) 11/27/16 04:30 Metamyelocytes % 1 % (-0) H 11/26/16 12:25 Myelocytes % 3 % (-0) H 11/26/16 12:25 Nucleated RBC % Not Reportable 11/27/16 04:30 Neutrophils # (Manual) 10.0 10^3/uL (1.5-6.6) H 11/27/16 04:30 Lymphocytes # (Manual) 0.1 10^3/uL (1.5-3.5) L 11/27/16 04:30 Monocytes # (Manual) 0.1 10^3/uL (0.0-1.0) 11/27/16 04:30 Differential Comment MANUAL DIFFERENTIAL 11/27/16 04:30 WBC Morphology 2+ VACUOLATION (NORMAL) 1+ SMUDGE CELLS (NORMAL) 11/26/16 12:25 WBC Morphology 2+ VACUOLATION (NORMAL) 1+ SMUDGE CELLS (NORMAL) 11/26/16 12:25 Platelet Estimate DECREASED (<130,000) (NORMAL) 11/27/16 04:30 Platelet Morphology 1+ GIANT PLATELETS (NORMAL) 11/26/16 12:25 RBC Morph Micro Appear 1+ ANISOCYTOSIS (NORMAL) 1+ POLYCHROMASIA (NORMAL) 2+ MACROCYTOSIS (NORMAL) 1+ OVALOCYTES (NORMAL) 11/26/16 12:25 RBC Morph Micro Appear 1+ ANISOCYTOSIS (NORMAL) 1+ POLYCHROMASIA (NORMAL) 2+ MACROCYTOSIS (NORMAL) 1+ OVALOCYTES (NORMAL) 11/26/16 12:25 RBC Morph Micro Appear 1+ ANISOCYTOSIS (NORMAL) 1+ POLYCHROMASIA (NORMAL) 2+ MACROCYTOSIS (NORMAL) 1+ OVALOCYTES (NORMAL) 11/26/16 12:25 RBC Morph Micro Appear NORMAL APPEARANCE (NORMAL) 11/27/16 04:30 PT 19.0 secs (9.9-12.6) H 11/27/16 11:26 INR 1.7 (0.8-1.2) H 11/27/16 11:26 Bld Gas Analysis Time 11:55 11/26/16 11:55 ABG pH 7.16 (7.35-7.45) L* 11/26/16 11:55 ABG pCO2 75 mmHg (34-45) H* 11/26/16 11:55 ABG pO2 335 mmHg (80-100) H* 11/26/16 11:55 ABG HCO3 26.2 mmol/L (22.0-26.0) H 11/26/16 11:55 ABG Total CO2 28.5 MMOL/L (21.0-29.0) 11/26/16 11:55 ABG O2 Saturation 99 % (94-98) H 11/26/16 11:55 ABG Base Excess -4.3 mmol/L (-2.0-3.0) L 11/26/16 11:55 Elia Test POSITIVE 11/26/16 11:55 VBG pH 7.243 (7.31-7.41) L 11/27/16 05:54 Ionized Calcium 0.96 mmol/L (1.15-1.33) L 11/27/16 05:54 O2 Delivery Device NON REBREATHER MASK 11/26/16 11:55 O2 Liters/Min 10.00 LPM 11/26/16 11:55 FiO2 75.00 11/26/16 11:55 Sodium 132 mmol/L (135-145) L 11/27/16 05:54 Potassium 6.0 mmol/L (3.5-5.0) H* 11/27/16 05:54 Chloride 96 mmol/L (101-111) L 11/27/16 05:54 Carbon Dioxide 25 mmol/L (21-32) 11/27/16 05:54 Anion Gap 11.0 (6-13) 11/27/16 05:54 BUN 38 mg/dL (6-20) H 11/27/16 05:54 Creatinine 2.2 mg/dL (0.6-1.2) H 11/27/16 05:54 Estimated GFR (MDRD) 29 (>89) L 11/27/16 05:54 Glucose 127 mg/dL (70-100) H 11/27/16 05:54 Calcium 7.5 mg/dL (8.5-10.3) L 11/27/16 05:54 Ionized Calcium YES 11/27/16 05:54 Phosphorus 6.9 mg/dL (2.5-4.6) H 11/27/16 05:54 Magnesium 1.9 mg/dL (1.7-2.8) 11/27/16 05:54 Total Bilirubin 0.6 mg/dL (0.2-1.0) 11/27/16 05:54 Direct Bilirubin 0.2 mg/dL (0.1-0.5) 11/27/16 04:30 AST > 5200 IU/L (10-42) H 11/27/16 05:54 ALT 4486 IU/L (10-60) H 11/27/16 05:54 Alkaline Phosphatase 81 IU/L (42-121) 11/27/16 05:54 Ammonia 22.9 umol/L (7-35) 11/27/16 11:26 Troponin I 1.33 ng/mL (<0.49) H* 11/27/16 11:26 Total Protein 6.0 g/dL (6.7-8.2) L 11/27/16 05:54 Albumin 3.5 g/dL (3.2-5.5) 11/27/16 05:54 Globulin 2.5 g/dL (2.1-4.2) 11/27/16 05:54 Albumin/Globulin Ratio 1.4 (1.0-2.2) 11/27/16 05:54 Lipase 36 U/L (22-51) 11/26/16 13:12 Urine Color YELLOW 11/26/16 12:50 Urine Clarity CLEAR (CLEAR) 11/26/16 12:50 Urine pH 6.0 PH (5.0-7.5) 11/26/16 12:50 Ur Specific [place] >=1.030 (1.002-1.030) H 11/26/16 12:50 Urine Protein 100 mg/dL (NEGATIVE) H 11/26/16 12:50 Urine Glucose (UA) NEGATIVE mg/dL (NEGATIVE) 11/26/16 12:50 Urine Ketones NEGATIVE mg/dL (NEGATIVE) 11/26/16 12:50 Urine Occult Blood SMALL (NEGATIVE) H 11/26/16 12:50 Urine Nitrite NEGATIVE (NEGATIVE) 11/26/16 12:50 Urine Bilirubin NEGATIVE (NEGATIVE) 11/26/16 12:50 Urine Urobilinogen 0.2 (NORMAL) E.U./dL (NORMAL) 11/26/16 12:50 Ur Leukocyte Esterase NEGATIVE (NEGATIVE) 11/26/16 12:50 Urine RBC TNTC /HPF (0-5) H 11/26/16 12:50 Urine WBC 11-25 /HPF (0-3) H 11/26/16 12:50 Ur Epithelial Cells MANY Renal Tubular /HPF (<= Few) H 11/26/16 12:50 Ur Squamous Epith Cells MOD Squamous (<= Few) H 11/26/16 12:50 Urine Bacteria Few /HPF (None Seen) 11/26/16 12:50 Ur Microscopic Review INDICATED 11/26/16 12:50 Urine Culture Comments NOT INDICATED 11/26/16 12:50 Acetaminophen < 10 ug/mL (10-30) L 11/26/16 13:12
--- NOTE | 2016-11-27 16:41 | Ultrasound Preliminary Report ---
Exam: US Abdomen Limited IMPRESSION: Negative hepatic ultrasound. The portal and hepatic veins are patent. [facility] SITE ID: [id number]
--- NOTE | 2016-11-27 16:44 | Ultrasound Report ---
EXAM: ABDOMEN ULTRASOUND LIMITED, RUQ EXAM DATE: 11/27/2016 04:23 PM. CLINICAL HISTORY: Hepatic dysfunction. COMPARISON: None. TECHNIQUE: Real-time scanning was performed with static images obtained. FINDINGS: Liver: Hepatic echotexture is within normal limits. Submitted images of the liver demonstrate no foca l lesions. The left, right, and middle hepatic veins are patent. The IVC is patent. The main portal vein is patent. The left and right portal veins are patent. IMPRESSION: Negative hepatic ultrasound. The portal and hepatic veins are patent. [facility] Referring Provider Line: [phone] SITE ID: [id number]
[2016-11-27] MEDS: METOPROLOL TARTRATE 25 MG TABLET PO SCH ×2 (17:17→21:05)
[2016-11-27] MEDS: ISOSORBIDE MONONITRATE ER 30 MG TABLET PO SCH (17:18)
[2016-11-27] MEDS: PRAMIPEXOLE 0.25 MG TABLET PO SCH (21:10)
[2016-11-28] MEDS: traZODone 50 MG TABLET PO SCH ×3 (00:53→22:33)
[2016-11-28] MEDS: IPRATROPIUM/ALBUTEROL 3 ML NEB INH PRN (01:14)
[2016-11-28] MEDS ORDERED: oxyCODONE 5 MG TABLET PO SCH (01:26)
[2016-11-28] MEDS: methylPREDNISolone SUCCINATE 40 MG/ML VIAL IVP SCH ×2 (05:50→14:39)
[2016-11-28] MEDS: SODIUM CHLORIDE FLUSH 0.9% 10 ML SYRINGE IVP SCH ×2 (05:50→14:41)
[2016-11-28 06:25] LABS: BASOPHILS % (AUTO) 0.2 %; HCT - HEMATOCRIT 36.6 % (42.0-52.0); HGB - HEMOGLOBIN 12.5 g/dL (14.0-18.0); LYMPHOCYTES % (AUTO) 2.5 %; MEAN CORPUSCULAR HEMOGLOBIN 31.9 pg (27.0-31.0); MEAN CORPUSCULAR HGB CONC 34.2 g/dL (32.0-36.0); MEAN CORPUSCULAR VOLUME 93.4 fL (80.0-94.0); MEAN PLATELET VOLUME 8.5 fL (7.4-11.4); NEUTROPHILS % (AUTO) 93.3 %; RED BLOOD COUNT 3.92 10^6/uL (4.70-6.10); RED CELL DISTRIBUTION WIDTH 14.8 % (12.0-15.0); UNCORRECTED WHITE BLOOD COUNT 10.3 x10^3/uL; WHITE BLOOD COUNT 10.3 x10^3/uL (4.8-10.8)
[2016-11-28 06:46] LABS: BAND NEUTROPHILS % (MANUAL) 2 %; LYMPHOCYTES % (MANUAL) 5 %; NEUTROPHILS % (MANUAL) 87 %; NP AUTO DIFFERENTIAL? YES; NP MAN DIFFERENTIAL? NO; PLATELET ESTIMATE, MANUAL DECREASED (<130,000) (NORMAL); TOTAL CELLS COUNTED 100
[2016-11-28 08:47] LABS: ALBUMIN/GLOBULIN RATIO 1.5 (1.0-2.2); BILIRUBIN,TOTAL 0.7 mg/dL (0.2-1.0); BUN - BLOOD UREA NITROGEN 71 mg/dL (6-20); CARBON DIOXIDE - CO2 22 mmol/L (21-32); CHLORIDE 91 mmol/L (101-111); CREATININE 3.8 mg/dL (0.6-1.2); GFR - MDRD 16 (>89); GLUCOSE 121 mg/dL (70-100); PHOSPHORUS 4.8 mg/dL (2.5-4.6); POTASSIUM 5.1 mmol/L (3.5-5.0); SODIUM 129 mmol/L (135-145); TOTAL PROTEIN 5.9 g/dL (6.7-8.2)
[2016-11-28 08:50] LABS: VBG PH 7.26 (7.31-7.41)
[2016-11-28 08:51] LABS: CALCIUM, IONIZED 1.04 mmol/L (1.15-1.33)
[2016-11-28] MEDS: ISOSORBIDE MONONITRATE ER 30 MG TABLET PO SCH (09:41)
[2016-11-28] MEDS: METOPROLOL TARTRATE 25 MG TABLET PO SCH ×2 (09:42→22:32)
[2016-11-28] MEDS: METHADONE 5 MG TABLET PO SCH (09:43)
[2016-11-28] MEDS: PANTOPRAZOLE 40 MG VIAL IVP SCH (14:39)
[2016-11-28] MEDS: SODIUM CHLORIDE 0.9% 1,000 ML IV SCH (18:29)
--- NOTE | 2016-11-28 18:48 | PROVIDER PROGRESS NOTE ---
Assessment/Plan - Problem List (1) Severe chronic obstructive pulmonary disease Assessment/Plan: Stable pulmonary status on current meds iv fell out and could not be restarted. Will change Methylprednisolone to Prednisone 40 mg po daily with a taper planned as outpt. (2) Liver failure without hepatic coma Qualifiers: Liver failure chronicity: unspecified chronicity Qualified Code(s): K72.90 - Hepatic failure, unspecified without coma Assessment/Plan: Improved LFTs on Acetylcysteine and with volume replacement Continue to monitor (3) ARF (acute renal failure) Assessment/Plan: Worsening creat and more eddema of stump and of R leg. Will decrease fluid input [place] labs. Pt has stated he would not want dialysis. (4) Acute non-ST elevation myocardial infarction (NSTEMI) Assessment/Plan: Echo shows nearly normal LVEF. Continue medical management, no angio planned per Pt wishes. (5) Chronic pain Assessment/Plan: Improved with the addition of Valium po. (6) Thrombocytopenia Assessment/Plan: Continued drop in plts. No Lovenox or ASA use due to this. (7) Hypotension Assessment/Plan: Resolved after volume replacement. (8) Altered level of consciousness Assessment/Plan: Resolved. - Current Meds Current Meds: Current Medications Generic Name Dose Route Start Last Admin Trade Name Freq PRN Reason Stop Dose Admin Albuterol/Ipratropium 3 ml 11/27/16 05:16 11/28/16 01:14 Duoneb INH 3 ml Q4HR PRN Administration Wheezing Diazepam 5 mg 11/27/16 13:00 11/27/16 13:06 Valium PO 5 mg DAILY YANN Administration Sodium Chloride 1,000 mls @ 30 mls/hr 11/27/16 08:39 11/28/16 18:29 Normal Saline 0.9% IV Not Given .[id number] YANN Isosorbide Mononitrate 30 mg 11/27/16 17:00 11/28/16 09:41 Imdur PO 30 mg DAILY YANN Administration Methadone HCl 5 mg 11/27/16 09:00 11/28/16 09:43 PO 5 mg DAILY YANN Administration Metoprolol Tartrate 12.5 mg 11/27/16 17:00 11/28/16 09:42 Lopressor PO 12.5 mg BID YANN Administration Pramipexole Dihydrochloride 1.5 mg 11/27/16 21:00 11/27/16 21:10 Mirapex PO 1.5 mg QPM YANN Administration Sodium Chloride 10 ml 11/26/16 22:00 11/28/16 14:41 Normal Saline Flush 0.9% IVP Not Given Q8HR YANN Sodium Chloride 10 ml 11/26/16 14:31 11/27/16 21:13 Normal Saline Flush 0.9% IVP 10 ml PRN PRN Administration NEEDED PER PROVIDER ORDERS - Lab Result Fish Bone Diagrams: 11/28/16 05:55 11/28/16 05:55 - Additional Planning My Orders: My Active Orders 11/27/16 21:00 Pramipexole [Mirapex] 1.5 mg PO QPM 11/29/16 05:00 BMP - BASIC METABOLIC PANEL [CHEM] DAILYLAB 11/29/16 07:00 Pantoprazole [Protonix] 40 mg PO QDAC 11/29/16 08:00 predniSONE [Deltasone] 40 mg PO DAILYWM Subjective - Subjective Patient Reports: Feeling Better Nursing Reports: Other (Leg prosthesis not fitting due to more edema of stump.) Objective Vital Signs: Vital Signs - 24 hr 11/27/16 11/27/16 11/27/16 18:59 19:54 21:05 Temperature 36.9 C Heart Rate Heart Rate [ 68 63 Monitoring electrodes] Respiratory 17 23 Rate Blood Pressure 108/69 Blood Pressure [Left Brachial artery] Blood Pressure 142/69 H 128/67 [Right Radial artery] O2 Saturation 94 92 11/27/16 11/27/16 11/28/16 21:08 23:19 01:15 Temperature 36.6 C Heart Rate 68 Heart Rate [ 69 66 Monitoring electrodes] Respiratory 22 20 18 Rate Blood Pressure Blood Pressure [Left Brachial artery] Blood Pressure 108/69 125/63 [Right Radial artery] O2 Saturation 92 92 11/28/16 11/28/16 11/28/16 05:00 07:58 09:42 Temperature 36.7 C 36.7 C Heart Rate Heart Rate [ 69 65 Monitoring electrodes] Respiratory 20 20 Rate Blood Pressure 133/69 H Blood Pressure 133/69 H [Left Brachial artery] Blood Pressure 131/51 H [Right Radial artery] O2 Saturation 93 93 11/28/16 11/28/16 13:00 16:31 Temperature 36.8 C 36.4 C L Heart Rate Heart Rate [ 58 L 64 Monitoring electrodes] Respiratory 20 18 Rate Blood Pressure Blood Pressure 131/61 H [Left Brachial artery] Blood Pressure 124/61 [Right Radial artery] O2 Saturation 96 96 Oxygen O2 Source Nasal cannula I&O (Last 24 Hrs): Intake and Output Totals x24h 11/26/16 11/27/16 11/28/16 23:59 23:59 23:59 Intake Total 1600 700 400 Output Total 45 247 675 Balance 1555 453 -275 General: Alert, Oriented x3 HEENT: Mucous membr. moist/pink Neck: Supple, No JVD Cardiovascular: No murmurs Respiratory: No respiratory distress Extremities: Other (R leg more edematous, same color) - Results Results: Laboratory Results WBC 10.3 x10^3/uL (4.8-10.8) 11/28/16 05:55 RBC 3.92 10^6/uL (4.70-6.10) L 11/28/16 05:55 Hgb 12.5 g/dL (14.0-18.0) L 11/28/16 05:55 Hct 36.6 % (42.0-52.0) L 11/28/16 05:55 MCV 93.4 fL (80.0-94.0) 11/28/16 05:55 MCH 31.9 pg (27.0-31.0) H 11/28/16 05:55 MCHC 34.2 g/dL (32.0-36.0) 11/28/16 05:55 RDW 14.8 % (12.0-15.0) 11/28/16 05:55 Plt Count 55 10^3/uL (130-450) L 11/28/16 05:55 MPV 8.5 fL (7.4-11.4) 11/28/16 05:55 Neut # Not Reportable 11/28/16 05:55 Lymph # Not Reportable 11/28/16 05:55 [place] # Not Reportable 11/28/16 05:55 Eos # Not Reportable 11/28/16 05:55 Baso # Not Reportable 11/28/16 05:55 Absolute Nucleated RBC Not Reportable 11/28/16 05:55 Total Counted 100 11/28/16 05:55 Band Neuts % (Manual) 2 % (0-10) 11/28/16 05:55 Metamyelocytes % 1 % (-0) H 11/26/16 12:25 Myelocytes % 3 % (-0) H 11/26/16 12:25 Nucleated RBC % Not Reportable 11/28/16 05:55 Neutrophils # (Manual) 9.2 10^3/uL (1.5-6.6) H 11/28/16 05:55 Lymphocytes # (Manual) 0.5 10^3/uL (1.5-3.5) L 11/28/16 05:55 Monocytes # (Manual) 0.6 10^3/uL (0.0-1.0) 11/28/16 05:55 Differential Comment MANUAL DIFFERENTIAL 11/28/16 05:55 WBC Morphology 2+ VACUOLATION (NORMAL) 1+ SMUDGE CELLS (NORMAL) 11/26/16 12:25 WBC Morphology 2+ VACUOLATION (NORMAL) 1+ SMUDGE CELLS (NORMAL) 11/26/16 12:25 Platelet Estimate DECREASED (<130,000) (NORMAL) 11/28/16 05:55 Platelet Morphology 1+ GIANT PLATELETS (NORMAL) 11/26/16 12:25 RBC Morph Micro Appear 1+ ANISOCYTOSIS (NORMAL) 1+ POLYCHROMASIA (NORMAL) 2+ MACROCYTOSIS (NORMAL) 1+ OVALOCYTES (NORMAL) 11/26/16 12:25 RBC Morph Micro Appear 1+ ANISOCYTOSIS (NORMAL) 1+ POLYCHROMASIA (NORMAL) 2+ MACROCYTOSIS (NORMAL) 1+ OVALOCYTES (NORMAL) 11/26/16 12:25 RBC Morph Micro Appear NORMAL APPEARANCE (NORMAL) 11/27/16 04:30 RBC Morph Micro Appear NORMAL APPEARANCE (NORMAL) 11/28/16 05:55 PT 19.0 secs (9.9-12.6) H 11/27/16 11:26 INR 1.7 (0.8-1.2) H 11/27/16 11:26 Bld Gas Analysis Time 11:55 11/26/16 11:55 ABG pH 7.16 (7.35-7.45) L* 11/26/16 11:55 ABG pCO2 75 mmHg (34-45) H* 11/26/16 11:55 ABG pO2 335 mmHg (80-100) H* 11/26/16 11:55 ABG HCO3 26.2 mmol/L (22.0-26.0) H 11/26/16 11:55 ABG Total CO2 28.5 MMOL/L (21.0-29.0) 11/26/16 11:55 ABG O2 Saturation 99 % (94-98) H 11/26/16 11:55 ABG Base Excess -4.3 mmol/L (-2.0-3.0) L 11/26/16 11:55 Elia Test POSITIVE 11/26/16 11:55 VBG pH 7.260 (7.31-7.41) L 11/28/16 05:55 Ionized Calcium 1.04 mmol/L (1.15-1.33) L 11/28/16 05:55 O2 Delivery Device NON REBREATHER MASK 11/26/16 11:55 O2 Liters/Min 10.00 LPM 11/26/16 11:55 FiO2 75.00 11/26/16 11:55 Sodium 129 mmol/L (135-145) L 11/28/16 05:55 Potassium 5.1 mmol/L (3.5-5.0) H 11/28/16 05:55 Chloride 91 mmol/L (101-111) L 11/28/16 05:55 Carbon Dioxide 22 mmol/L (21-32) 11/28/16 05:55 Anion Gap 16.0 (6-13) H 11/28/16 05:55 BUN 71 mg/dL (6-20) H 11/28/16 05:55 Creatinine 3.8 mg/dL (0.6-1.2) H 11/28/16 05:55 Estimated GFR (MDRD) 16 (>89) L 11/28/16 05:55 Glucose 121 mg/dL (70-100) H 11/28/16 05:55 Calcium 8.0 mg/dL (8.5-10.3) L 11/28/16 05:55 Ionized Calcium YES 11/28/16 05:55 Phosphorus 4.8 mg/dL (2.5-4.6) H 11/28/16 05:55 Magnesium 2.0 mg/dL (1.7-2.8) 11/28/16 05:55 Total Bilirubin 0.7 mg/dL (0.2-1.0) 11/28/16 05:55 Direct Bilirubin 0.2 mg/dL (0.1-0.5) 11/27/16 04:30 AST 2221 IU/L (10-42) H 11/28/16 05:55 ALT 3614 IU/L (10-60) H 11/28/16 05:55 Alkaline Phosphatase 78 IU/L (42-121) 11/28/16 05:55 Ammonia 22.9 umol/L (7-35) 11/27/16 11:26 Troponin I 0.75 ng/mL (<0.49) H* 11/28/16 05:55 Total Protein 5.9 g/dL (6.7-8.2) L 11/28/16 05:55 Albumin 3.5 g/dL (3.2-5.5) 11/28/16 05:55 Globulin 2.4 g/dL (2.1-4.2) 11/28/16 05:55 Albumin/Globulin Ratio 1.5 (1.0-2.2) 11/28/16 05:55 Lipase 36 U/L (22-51) 11/26/16 13:12 Urine Color YELLOW 11/26/16 12:50 Urine Clarity CLEAR (CLEAR) 11/26/16 12:50 Urine pH 6.0 PH (5.0-7.5) 11/26/16 12:50 Ur Specific [place] >=1.030 (1.002-1.030) H 11/26/16 12:50 Urine Protein 100 mg/dL (NEGATIVE) H 11/26/16 12:50 Urine Glucose (UA) NEGATIVE mg/dL (NEGATIVE) 11/26/16 12:50 Urine Ketones NEGATIVE mg/dL (NEGATIVE) 11/26/16 12:50 Urine Occult Blood SMALL (NEGATIVE) H 11/26/16 12:50 Urine Nitrite NEGATIVE (NEGATIVE) 11/26/16 12:50 Urine Bilirubin NEGATIVE (NEGATIVE) 11/26/16 12:50 Urine Urobilinogen 0.2 (NORMAL) E.U./dL (NORMAL) 11/26/16 12:50 Ur Leukocyte Esterase NEGATIVE (NEGATIVE) 11/26/16 12:50 Urine RBC TNTC /HPF (0-5) H 11/26/16 12:50 Urine WBC 11-25 /HPF (0-3) H 11/26/16 12:50 Ur Epithelial Cells MANY Renal Tubular /HPF (<= Few) H 11/26/16 12:50 Ur Squamous Epith Cells MOD Squamous (<= Few) H 11/26/16 12:50 Urine Bacteria Few /HPF (None Seen) 11/26/16 12:50 Ur Microscopic Review INDICATED 11/26/16 12:50 Urine Culture Comments NOT INDICATED 11/26/16 12:50 Acetaminophen < 10 ug/mL (10-30) L 11/26/16 13:12 Hepatitis A IgM Ab NON-REACTIVE (NON-REACTIVE) 11/27/16 05:54 Hep Bs Antigen NON-REACTIVE (NON-REACTIVE) 11/27/16 05:54 Hep B Core IgM Ab NON-REACTIVE (NON-REACTIVE) 11/27/16 05:54 Hepatitis C Antibody NON-REACTIVE (NON-REACTIVE) 11/27/16 05:54 Hep C Ab Signal/Cutoff 0.00 (<1.00) 11/27/16 05:54
[2016-11-28] MEDS: PRAMIPEXOLE 0.25 MG TABLET PO SCH (22:33)
[2016-11-29] MEDS: PANTOPRAZOLE 40 MG TABLET PO SCH (06:29)
[2016-11-29 07:10] LABS: CALCIUM 7.9 mg/dL (8.5-10.3); CREATININE 5.1 mg/dL (0.6-1.2); POTASSIUM 5.6 mmol/L (3.5-5.0)
[2016-11-29] MEDS: POLYETHYLENE GLYCOL 3350 17 GM PACKET PO SCH (08:58)
[2016-11-29] MEDS: METOPROLOL TARTRATE 25 MG TABLET PO SCH ×2 (08:59→20:40)
[2016-11-29] MEDS: predniSONE 20 MG TABLET PO SCH (08:59)
[2016-11-29] MEDS: DOCUSATE SODIUM 250 MG CAPSULE PO SCH (09:00)
[2016-11-29] MEDS: METHADONE 5 MG TABLET PO SCH (09:00)
[2016-11-29] MEDS: diazePAM 5 MG TABLET PO SCH (09:01)
[2016-11-29] MEDS: ISOSORBIDE MONONITRATE ER 30 MG TABLET PO SCH (09:01)
[2016-11-29] MEDS: SENNA 8.6 MG TABLET PO SCH (09:01)
--- NOTE | 2016-11-29 11:46 | PROVIDER PROGRESS NOTE ---
Subjective - General Admit Date: 11/26/16 Objective - Patient Data Vital Signs: Vital Signs x48h Temp Pulse Pulse Resp BP BP Pulse Ox 11/29/16 09:30 63 18 11/29/16 08:59 139/57 H 11/29/16 08:19 36.4 C L 67 18 139/57 H 96 11/29/16 05:39 36.4 C L 64 18 148/69 H 96 Weight: Weight 11/27/16 11/28/16 11/29/16 23:59 23:59 23:59 Weight (kg) 80.399 kg 80.6 kg 82.463 kg Intake & Output: Intake and Output Totals x24h 11/27/16 11/28/16 11/29/16 23:59 23:59 23:59 Intake Total 700 600 200 Output Total 247 675 700 Balance 453 -69 -154 - Lab Results Lab Results: 11/28/16 05:55 11/29/16 06:05 Other Lab Results: Lab Results x24hrs 11/29/16 11/27/16 Range/Units 06:05 05:54 Sodium 130 L (135-145) mmol/L Potassium 5.6 H (3.5-5.0) mmol/L Chloride 91 L (101-111) mmol/L Carbon Dioxide 22 (21-32) mmol/L Anion Gap 17.0 H (6-13) BUN 90 H* (6-20) mg/dL Creatinine 5.1 H (0.6-1.2) mg/dL Estimated GFR (MDRD) 11 L (>89) Glucose 103 H (70-100) mg/dL Calcium 7.9 L (8.5-10.3) mg/dL Hepatitis A IgM Ab NON-REACTIVE (NON-REACTIVE) Hep Bs Antigen NON-REACTIVE (NON-REACTIVE) Hep B Core IgM Ab NON-REACTIVE (NON-REACTIVE) Hepatitis C Antibody NON-REACTIVE (NON-REACTIVE) Hep C Ab Signal/Cutoff 0.00 (<1.00) - Current Medications Current Medications: Current Medications Generic Name Dose Route Start Last Admin Trade Name Freq PRN Reason Stop Dose Admin Albuterol/Ipratropium 3 ml 11/27/16 05:16 11/28/16 01:14 Duoneb INH 3 ml Q4HR PRN Administration Wheezing Diazepam 5 mg 11/27/16 13:00 11/29/16 09:01 Valium PO 5 mg DAILY YANN Administration Docusate Sodium 250 - 500 mg 11/29/16 09:00 11/29/16 09:00 Colace 250mg Capsule PO 250 mg DAILY YANN Administration Isosorbide Mononitrate 30 mg 11/27/16 17:00 11/29/16 09:01 Imdur PO 30 mg DAILY YANN Administration Methadone HCl 5 mg 11/27/16 09:00 11/29/16 09:00 PO 5 mg DAILY YANN Administration Metoprolol Tartrate 12.5 mg 11/27/16 17:00 11/29/16 08:59 Lopressor PO 12.5 mg BID YANN Administration Pantoprazole Sodium 40 mg 11/29/16 07:00 11/29/16 06:29 Protonix PO 40 mg QDAC YANN Administration Polyethylene Glycol 17 gm 11/29/16 09:00 11/29/16 08:58 Miralax PO 17 gm DAILY YANN Administration Pramipexole Dihydrochloride 1.5 mg 11/27/16 21:00 11/28/16 22:33 Mirapex PO 1.5 mg QPM YANN Administration Prednisone 40 mg 11/29/16 08:00 11/29/16 08:59 Deltasone PO 40 mg DAILYWM YANN Administration Senna 8.6 - 17.2 mg 11/29/16 09:00 11/29/16 09:01 Senokot PO 8.6 mg DAILY YANN Administration Trazodone HCl 100 mg 11/28/16 10:02 11/28/16 22:33 Desyrel PO 100 mg QPM YANN Administration Impression/Plan - Problem List Problem List: The patient is/has developed hepatorenal syndrome. The prognosis is poor. There are no surgically correctable issues that we can help with in this patient. I placed this in this note format as there is no other way to communicate this in a simple note with the input choices I am given in [email or web address]. General surgery will sign off his care.
[2016-11-29] MEDS ORDERED: SODIUM CHLORIDE FLUSH 0.9% 10 ML SYRINGE IVP ONE (20:35)
[2016-11-29] MEDS: SODIUM CHLORIDE FLUSH 0.9% 10 ML SYRINGE IVP ONE (20:36)
[2016-11-29] MEDS: FUROSEMIDE 40 MG/4 ML VIAL IVP SCH (20:36)
[2016-11-29] MEDS: PRAMIPEXOLE 0.25 MG TABLET PO SCH (20:38)
[2016-11-29] MEDS: traZODone 50 MG TABLET PO SCH (20:40)
--- NOTE | 2016-11-29 22:15 | PROVIDER PROGRESS NOTE ---
Assessment/Plan - Problem List (1) Severe chronic obstructive pulmonary disease Assessment/Plan: Stable, except more wet cough (2) Liver failure without hepatic coma Qualifiers: Liver failure chronicity: unspecified chronicity Qualified Code(s): K72.90 - Hepatic failure, unspecified without coma Assessment/Plan: No LFTs today. Will check tomorrow (3) ARF (acute renal failure) Assessment/Plan: Continued worsening. I had a long discussion with Pt alone, then with family all present in room, regarding possible need for hemodialysis and answered all their questions to their satisfaction. Pt is now willing to have dialysis if needed Will monitor creat tomorrow and if needed, will contact Hospitalists for transfer to [facility] or [facility] for nephrology management. Will limit po and fluids and begin iv Lasix Pt will need iv restart or CVP (by Anesthesia). - Current Meds Current Meds: Current Medications Generic Name Dose Route Start Last Admin Trade Name Freq PRN Reason Stop Dose Admin Albuterol/Ipratropium 3 ml 11/27/16 05:16 11/28/16 01:14 Duoneb INH 3 ml Q4HR PRN Administration Wheezing Diazepam 5 mg 11/27/16 13:00 11/29/16 09:01 Valium PO 5 mg DAILY YANN Administration Docusate Sodium 250 - 500 mg 11/29/16 09:00 11/29/16 09:00 Colace 250mg Capsule PO 250 mg DAILY YANN Administration Furosemide 40 mg 11/29/16 18:00 11/29/16 20:36 Lasix Inj 40 Mg Vial IVP 40 mg BIDDIURETIC YANN Administration Isosorbide Mononitrate 30 mg 11/27/16 17:00 11/29/16 09:01 Imdur PO 30 mg DAILY YANN Administration Methadone HCl 5 mg 11/27/16 09:00 11/29/16 09:00 PO 5 mg DAILY YANN Administration Metoprolol Tartrate 12.5 mg 11/27/16 17:00 11/29/16 20:40 Lopressor PO 12.5 mg BID YANN Administration Pantoprazole Sodium 40 mg 11/29/16 07:00 11/29/16 06:29 Protonix PO 40 mg QDAC YANN Administration Polyethylene Glycol 17 gm 11/29/16 09:00 11/29/16 08:58 Miralax PO 17 gm DAILY YANN Administration Pramipexole Dihydrochloride 1.5 mg 11/27/16 21:00 11/29/16 20:38 Mirapex PO 1.5 mg QPM YANN Administration Prednisone 40 mg 11/29/16 08:00 11/29/16 08:59 Deltasone PO 40 mg DAILYWM YANN Administration Senna 8.6 - 17.2 mg 11/29/16 09:00 11/29/16 09:01 Senokot PO 8.6 mg DAILY YANN Administration Trazodone HCl 100 mg 11/28/16 10:02 11/29/16 20:40 Desyrel PO 100 mg QPM YANN Administration - Lab Result Fish Bone Diagrams: 11/28/16 05:55 11/29/16 06:05 - Additional Planning My Orders: My Active Orders 11/29/16 07:00 Pantoprazole [Protonix] 40 mg PO QDAC 11/29/16 08:00 predniSONE [Deltasone] 40 mg PO DAILYWM 11/29/16 09:00 Docusate Sodium 250Mg Capsule [Colace 250Mg Capsule] 250 - 500 mg PO DAILY Polyethylene Glycol 3350 [Miralax] 17 gm PO DAILY Senna [Senokot] 8.6 - 17.2 mg PO DAILY 11/29/16 18:00 FUROSEMIDE INJ 40mg VIAL [LASIX INJ 40 mg VIAL] 40 mg IVP BIDDIURETIC 11/30/16 05:00 BMP - BASIC METABOLIC PANEL [CHEM] DAILYLAB CBC - COMP BLD CT W/AUTO DIFF [HEME] DAILYLAB LIVER PANEL [CHEM] DAILYLAB Subjective - Subjective Patient Reports: Feeling Better, Resting Comfortably Objective Vital Signs: Vital Signs - 24 hr 11/28/16 11/29/16 11/29/16 22:32 00:13 05:39 Temperature 36.6 C 36.4 C L Heart Rate Heart Rate [ 61 64 Monitoring electrodes] Respiratory 18 18 Rate Blood Pressure 139/66 H Blood Pressure 128/63 [Left Brachial artery] Blood Pressure 148/69 H [Right Radial artery] O2 Saturation 96 96 11/29/16 11/29/16 11/29/16 08:19 08:59 09:30 Temperature 36.4 C L Heart Rate 63 Heart Rate [ 67 Monitoring electrodes] Respiratory 18 18 Rate Blood Pressure 139/57 H Blood Pressure [Left Brachial artery] Blood Pressure 139/57 H [Right Radial artery] O2 Saturation 96 11/29/16 11/29/16 11/29/16 13:00 16:42 20:22 Temperature 36.6 C 36.3 C L 35.6 C L Heart Rate Heart Rate [ 55 L 58 L 57 L Monitoring electrodes] Respiratory 18 16 18 Rate Blood Pressure Blood Pressure [Left Brachial artery] Blood Pressure 116/53 L 122/55 L 142/58 H [Right Radial artery] O2 Saturation 98 96 95 11/29/16 20:40 Temperature Heart Rate Heart Rate [ Monitoring electrodes] Respiratory Rate Blood Pressure 126/60 Blood Pressure [Left Brachial artery] Blood Pressure [Right Radial artery] O2 Saturation Oxygen O2 Source Nasal cannula I&O (Last 24 Hrs): Intake and Output Totals x24h 11/27/16 11/28/16 11/29/16 23:59 23:59 23:59 Intake Total 700 600 700 Output Total 402 601 3038 Balance 453 -75 -400 General: Alert, Oriented x3, Other (Slightly more somnolent) HEENT: Mucous membr. moist/pink Neck: Supple, No JVD Neuro: Non Focal Cardiovascular: Regular rate Respiratory: No respiratory distress Extremities: Other (Hand and leg edema slightly increased) - Results Results: Laboratory Results WBC 10.3 x10^3/uL (4.8-10.8) 11/28/16 05:55 RBC 3.92 10^6/uL (4.70-6.10) L 11/28/16 05:55 Hgb 12.5 g/dL (14.0-18.0) L 11/28/16 05:55 Hct 36.6 % (42.0-52.0) L 11/28/16 05:55 MCV 93.4 fL (80.0-94.0) 11/28/16 05:55 MCH 31.9 pg (27.0-31.0) H 11/28/16 05:55 MCHC 34.2 g/dL (32.0-36.0) 11/28/16 05:55 RDW 14.8 % (12.0-15.0) 11/28/16 05:55 Plt Count 55 10^3/uL (130-450) L 11/28/16 05:55 MPV 8.5 fL (7.4-11.4) 11/28/16 05:55 Neut # Not Reportable 11/28/16 05:55 Lymph # Not Reportable 11/28/16 05:55 [place] # Not Reportable 11/28/16 05:55 Eos # Not Reportable 11/28/16 05:55 Baso # Not Reportable 11/28/16 05:55 Absolute Nucleated RBC Not Reportable 11/28/16 05:55 Total Counted 100 11/28/16 05:55 Band Neuts % (Manual) 2 % (0-10) 11/28/16 05:55 Metamyelocytes % 1 % (-0) H 11/26/16 12:25 Myelocytes % 3 % (-0) H 11/26/16 12:25 Nucleated RBC % Not Reportable 11/28/16 05:55 Neutrophils # (Manual) 9.2 10^3/uL (1.5-6.6) H 11/28/16 05:55 Lymphocytes # (Manual) 0.5 10^3/uL (1.5-3.5) L 11/28/16 05:55 Monocytes # (Manual) 0.6 10^3/uL (0.0-1.0) 11/28/16 05:55 Differential Comment MANUAL DIFFERENTIAL 11/28/16 05:55 WBC Morphology 2+ VACUOLATION (NORMAL) 1+ SMUDGE CELLS (NORMAL) 11/26/16 12:25 WBC Morphology 2+ VACUOLATION (NORMAL) 1+ SMUDGE CELLS (NORMAL) 11/26/16 12:25 Platelet Estimate DECREASED (<130,000) (NORMAL) 11/28/16 05:55 Platelet Morphology 1+ GIANT PLATELETS (NORMAL) 11/26/16 12:25 RBC Morph Micro Appear 1+ ANISOCYTOSIS (NORMAL) 1+ POLYCHROMASIA (NORMAL) 2+ MACROCYTOSIS (NORMAL) 1+ OVALOCYTES (NORMAL) 11/26/16 12:25 RBC Morph Micro Appear 1+ ANISOCYTOSIS (NORMAL) 1+ POLYCHROMASIA (NORMAL) 2+ MACROCYTOSIS (NORMAL) 1+ OVALOCYTES (NORMAL) 11/26/16 12:25 RBC Morph Micro Appear NORMAL APPEARANCE (NORMAL) 11/27/16 04:30 RBC Morph Micro Appear NORMAL APPEARANCE (NORMAL) 11/28/16 05:55 PT 19.0 secs (9.9-12.6) H 11/27/16 11:26 INR 1.7 (0.8-1.2) H 11/27/16 11:26 Bld Gas Analysis Time 11:55 11/26/16 11:55 ABG pH 7.16 (7.35-7.45) L* 11/26/16 11:55 ABG pCO2 75 mmHg (34-45) H* 11/26/16 11:55 ABG pO2 335 mmHg (80-100) H* 11/26/16 11:55 ABG HCO3 26.2 mmol/L (22.0-26.0) H 11/26/16 11:55 ABG Total CO2 28.5 MMOL/L (21.0-29.0) 11/26/16 11:55 ABG O2 Saturation 99 % (94-98) H 11/26/16 11:55 ABG Base Excess -4.3 mmol/L (-2.0-3.0) L 11/26/16 11:55 Elia Test POSITIVE 11/26/16 11:55 VBG pH 7.260 (7.31-7.41) L 11/28/16 05:55 Ionized Calcium 1.04 mmol/L (1.15-1.33) L 11/28/16 05:55 O2 Delivery Device NON REBREATHER MASK 11/26/16 11:55 O2 Liters/Min 10.00 LPM 11/26/16 11:55 FiO2 75.00 11/26/16 11:55 Sodium 130 mmol/L (135-145) L 11/29/16 06:05 Potassium 5.6 mmol/L (3.5-5.0) H 11/29/16 06:05 Chloride 91 mmol/L (101-111) L 11/29/16 06:05 Carbon Dioxide 22 mmol/L (21-32) 11/29/16 06:05 Anion Gap 17.0 (6-13) H 11/29/16 06:05 BUN 90 mg/dL (6-20) H* 11/29/16 06:05 Creatinine 5.1 mg/dL (0.6-1.2) H 11/29/16 06:05 Estimated GFR (MDRD) 11 (>89) L 11/29/16 06:05 Glucose 103 mg/dL (70-100) H 11/29/16 06:05 Calcium 7.9 mg/dL (8.5-10.3) L 11/29/16 06:05 Ionized Calcium YES 11/28/16 05:55 Phosphorus 4.8 mg/dL (2.5-4.6) H 11/28/16 05:55 Magnesium 2.0 mg/dL (1.7-2.8) 11/28/16 05:55 Total Bilirubin 0.7 mg/dL (0.2-1.0) 11/28/16 05:55 Direct Bilirubin 0.2 mg/dL (0.1-0.5) 11/27/16 04:30 AST 2221 IU/L (10-42) H 11/28/16 05:55 ALT 3614 IU/L (10-60) H 11/28/16 05:55 Alkaline Phosphatase 78 IU/L (42-121) 11/28/16 05:55 Ammonia 22.9 umol/L (7-35) 11/27/16 11:26 Troponin I 0.75 ng/mL (<0.49) H* 11/28/16 05:55 Total Protein 5.9 g/dL (6.7-8.2) L 11/28/16 05:55 Albumin 3.5 g/dL (3.2-5.5) 11/28/16 05:55 Globulin 2.4 g/dL (2.1-4.2) 11/28/16 05:55 Albumin/Globulin Ratio 1.5 (1.0-2.2) 11/28/16 05:55 Lipase 36 U/L (22-51) 11/26/16 13:12 Urine Color YELLOW 11/26/16 12:50 Urine Clarity CLEAR (CLEAR) 11/26/16 12:50 Urine pH 6.0 PH (5.0-7.5) 11/26/16 12:50 Ur Specific [place] >=1.030 (1.002-1.030) H 11/26/16 12:50 Urine Protein 100 mg/dL (NEGATIVE) H 11/26/16 12:50 Urine Glucose (UA) NEGATIVE mg/dL (NEGATIVE) 11/26/16 12:50 Urine Ketones NEGATIVE mg/dL (NEGATIVE) 11/26/16 12:50 Urine Occult Blood SMALL (NEGATIVE) H 11/26/16 12:50 Urine Nitrite NEGATIVE (NEGATIVE) 11/26/16 12:50 Urine Bilirubin NEGATIVE (NEGATIVE) 11/26/16 12:50 Urine Urobilinogen 0.2 (NORMAL) E.U./dL (NORMAL) 11/26/16 12:50 Ur Leukocyte Esterase NEGATIVE (NEGATIVE) 11/26/16 12:50 Urine RBC TNTC /HPF (0-5) H 11/26/16 12:50 Urine WBC 11-25 /HPF (0-3) H 11/26/16 12:50 Ur Epithelial Cells MANY Renal Tubular /HPF (<= Few) H 11/26/16 12:50 Ur Squamous Epith Cells MOD Squamous (<= Few) H 11/26/16 12:50 Urine Bacteria Few /HPF (None Seen) 11/26/16 12:50 Ur Microscopic Review INDICATED 11/26/16 12:50 Urine Culture Comments NOT INDICATED 11/26/16 12:50 Acetaminophen < 10 ug/mL (10-30) L 11/26/16 13:12 Hepatitis A IgM Ab NON-REACTIVE (NON-REACTIVE) 11/27/16 05:54 Hep Bs Antigen NON-REACTIVE (NON-REACTIVE) 11/27/16 05:54 Hep B Core IgM Ab NON-REACTIVE (NON-REACTIVE) 11/27/16 05:54 Hepatitis C Antibody NON-REACTIVE (NON-REACTIVE) 11/27/16 05:54 Hep C Ab Signal/Cutoff 0.00 (<1.00) 11/27/16 05:54
[2016-11-30] MEDS: PANTOPRAZOLE 40 MG TABLET PO SCH (06:51)
[2016-11-30] MEDS: FUROSEMIDE 40 MG/4 ML VIAL IVP SCH ×2 (06:51→13:49)
[2016-11-30] MEDS: SODIUM CHLORIDE FLUSH 0.9% 10 ML SYRINGE IVP ONE (06:52)
[2016-11-30 09:12] LABS: BASOPHILS % (AUTO) 0.2 %; HCT - HEMATOCRIT 42.4 % (42.0-52.0); HGB - HEMOGLOBIN 14.2 g/dL (14.0-18.0); LYMPHOCYTES # (AUTO) 0.2 10^3/uL (1.5-3.5); LYMPHOCYTES % (AUTO) 2.3 %; MEAN CORPUSCULAR HEMOGLOBIN 31.4 pg (27.0-31.0); MEAN CORPUSCULAR HGB CONC 33.6 g/dL (32.0-36.0); MEAN CORPUSCULAR VOLUME 93.4 fL (80.0-94.0); MEAN PLATELET VOLUME 8.1 fL (7.4-11.4); MONOCYTES # (AUTO) 0.6 10^3/uL (0.0-1.0); MONOCYTES % (AUTO) 6.2 %; NEUTROPHILS # (AUTO) 9.5 10^3/uL (1.5-6.6); NEUTROPHILS % (AUTO) 91.3 %; NUCLEATED RED BLOOD CELLS AUTO 0.2 /100WBC; RED BLOOD COUNT 4.54 10^6/uL (4.70-6.10); RED CELL DISTRIBUTION WIDTH 15.1 % (12.0-15.0); UNCORRECTED WHITE BLOOD COUNT 10.4 x10^3/uL; WHITE BLOOD COUNT 10.4 x10^3/uL (4.8-10.8)
[2016-11-30] MEDS: predniSONE 20 MG TABLET PO SCH (09:32)
[2016-11-30] MEDS: METHADONE 5 MG TABLET PO SCH (09:33)
[2016-11-30] MEDS: DOCUSATE SODIUM 250 MG CAPSULE PO SCH (09:34)
[2016-11-30] MEDS: diazePAM 5 MG TABLET PO SCH (09:34)
[2016-11-30] MEDS: SENNA 8.6 MG TABLET PO SCH (09:35)
[2016-11-30] MEDS: POLYETHYLENE GLYCOL 3350 17 GM PACKET PO SCH (09:36)
[2016-11-30] MEDS: METOPROLOL TARTRATE 25 MG TABLET PO SCH ×2 (09:38→21:10)
[2016-11-30] MEDS: ISOSORBIDE MONONITRATE ER 30 MG TABLET PO SCH (09:39)
[2016-11-30 09:47] LABS: PLATELET ESTIMATE, MANUAL DECREASED (<130,000) (NORMAL)
[2016-11-30 10:23] LABS: BILIRUBIN,DIRECT 0.1 mg/dL (0.1-0.5); BILIRUBIN,TOTAL 0.6 mg/dL (0.2-1.0); CREATININE 5.4 mg/dL (0.6-1.2); TOTAL PROTEIN 6.1 g/dL (6.7-8.2)
[2016-11-30] MEDS ORDERED: SODIUM POLYSTYRENE SULFONATE 15 GM/60 ML BOTTLE PO SCH (11:00)
[2016-11-30] MEDS ORDERED: SODIUM CHLORIDE FLUSH 0.9% 10 ML SYRINGE IVP ONE ×4 (13:48→19:36)
--- NOTE | 2016-11-30 17:12 | PROVIDER PROGRESS NOTE ---
Assessment/Plan - Problem List (1) ARF (acute renal failure) Assessment/Plan: Contiued worsening of BUN and creat and hyperkalemia Will continue iv Lasix, pt making urine Will reach out to [facility] or [facility] for transfer for higher level of care , potential ddialysis This was again discussed with Pt and 2 family members at length at bedside Will order Kayexelate and recheck K. If needed will use D50 and Insulin (2) Severe chronic obstructive pulmonary disease Assessment/Plan: Stable butmore wet cough Continue present meds and care (3) Liver failure without hepatic coma Qualifiers: Liver failure chronicity: unspecified chronicity Qualified Code(s): K72.90 - Hepatic failure, unspecified without coma Assessment/Plan: Improving (4) Acute non-ST elevation myocardial infarction (NSTEMI) Assessment/Plan: Stable hemodynamics on present medical management (6) Thrombocytopenia Assessment/Plan: Plt count is slightly improved today. Will still hold any ASA or Lovenox or Heparin - Current Meds Current Meds: Current Medications Generic Name Dose Route Start Last Admin Trade Name Freq PRN Reason Stop Dose Admin Albuterol/Ipratropium 3 ml 11/27/16 05:16 11/28/16 01:14 Duoneb INH 3 ml Q4HR PRN Administration Wheezing Docusate Sodium 250 - 500 mg 11/29/16 09:00 11/30/16 09:34 Colace 250mg Capsule PO 500 mg DAILY YANN Administration Furosemide 40 mg 11/29/16 18:00 11/30/16 13:49 Lasix Inj 40 Mg Vial IVP 40 mg BIDDIURETIC YANN Administration Isosorbide Mononitrate 30 mg 11/27/16 17:00 11/30/16 09:39 Imdur PO Not Given DAILY YANN Methadone HCl 5 mg 11/27/16 09:00 11/30/16 09:33 PO 5 mg DAILY YANN Administration Metoprolol Tartrate 12.5 mg 11/27/16 17:00 11/30/16 09:38 Lopressor PO Not Given BID YANN Pantoprazole Sodium 40 mg 11/29/16 07:00 11/30/16 06:51 Protonix PO 40 mg QDAC YANN Administration Polyethylene Glycol 17 gm 11/29/16 09:00 11/30/16 09:36 Miralax PO 17 gm DAILY YANN Administration Pramipexole Dihydrochloride 1.5 mg 11/27/16 21:00 11/29/16 20:38 Mirapex PO 1.5 mg QPM YANN Administration Senna 8.6 - 17.2 mg 11/29/16 09:00 11/30/16 09:35 Senokot PO 17.2 mg DAILY YANN Administration Trazodone HCl 100 mg 11/28/16 10:02 11/29/16 20:40 Desyrel PO 100 mg QPM YANN Administration - Lab Result Fish Bone Diagrams: 11/30/16 08:38 11/30/16 08:38 - Additional Planning My Orders: My Active Orders 11/29/16 18:00 FUROSEMIDE INJ 40mg VIAL [LASIX INJ 40 mg VIAL] 40 mg IVP BIDDIURETIC 11/30/16 15:00 POTASSIUM [CHEM] Urgent 11/30/16 17:06 POTASSIUM [CHEM] Stat 11/30/16 Lunch DIET [Hepatic/Renal Diet] [DIET] 12/01/16 08:00 predniSONE [Deltasone] 30 mg PO DAILYWM 12/01/16 09:00 diazePAM [Valium] 2.5 mg PO DAILY Subjective - Subjective Patient Reports: Resting Comfortably Objective Vital Signs: Vital Signs - 24 hr 11/29/16 11/29/16 11/29/16 20:22 20:30 20:40 Temperature 35.6 C L Heart Rate 58 L Heart Rate [ Brachial] Heart Rate [ 57 L Monitoring electrodes] Respiratory 18 18 Rate Blood Pressure 126/60 Blood Pressure [Right Brachial artery] Blood Pressure 142/58 H [Right Radial artery] O2 Saturation 95 11/30/16 11/30/16 11/30/16 00:01 04:30 07:50 Temperature 36.4 C L 36.3 C L Heart Rate 75 Heart Rate [ Brachial] Heart Rate [ 62 63 Monitoring electrodes] Respiratory 18 18 18 Rate Blood Pressure Blood Pressure 141/57 H [Right Brachial artery] Blood Pressure 137/64 H [Right Radial artery] O2 Saturation 94 94 11/30/16 11/30/16 11/30/16 09:00 09:38 13:00 Temperature 36.3 C L 36.3 C L Heart Rate Heart Rate [ Brachial] Heart Rate [ 57 L 59 L Monitoring electrodes] Respiratory 12 16 Rate Blood Pressure 121/52 L Blood Pressure 121/52 L 121/57 L [Right Brachial artery] Blood Pressure [Right Radial artery] O2 Saturation 96 93 11/30/16 11/30/16 14:28 15:58 Temperature 36.6 C 36.4 C L Heart Rate Heart Rate [ 56 L Brachial] Heart Rate [ 57 L Monitoring electrodes] Respiratory 15 14 Rate Blood Pressure Blood Pressure 123/57 L 132/54 H [Right Brachial artery] Blood Pressure [Right Radial artery] O2 Saturation 97 95 Oxygen O2 Source Nasal cannula I&O (Last 24 Hrs): Intake and Output Totals x24h 11/28/16 11/29/16 11/30/16 23:59 23:59 23:59 Intake Total 1253.917 700 450 Output Total 675 1100 2425 Balance 578.910 -400 -3032 General: Other (Slightly more lethargic today) HEENT: Mucous membr. moist/pink Neck: Supple Neuro: Alert Cardiovascular: Regular rate Respiratory: No respiratory distress Abdomen: Soft Extremities: Other (2+ edema) - Results Results: Laboratory Results WBC 10.4 x10^3/uL (4.8-10.8) 11/30/16 08:38 RBC 4.54 10^6/uL (4.70-6.10) L 11/30/16 08:38 Hgb 14.2 g/dL (14.0-18.0) 11/30/16 08:38 Hct 42.4 % (42.0-52.0) 11/30/16 08:38 MCV 93.4 fL (80.0-94.0) 11/30/16 08:38 MCH 31.4 pg (27.0-31.0) H 11/30/16 08:38 MCHC 33.6 g/dL (32.0-36.0) 11/30/16 08:38 RDW 15.1 % (12.0-15.0) H 11/30/16 08:38 Plt Count 96 10^3/uL (130-450) L 11/30/16 08:38 MPV 8.1 fL (7.4-11.4) 11/30/16 08:38 Neut # 9.5 10^3/uL (1.5-6.6) H 11/30/16 08:38 Lymph # 0.2 10^3/uL (1.5-3.5) L 11/30/16 08:38 [place] # 0.6 10^3/uL (0.0-1.0) 11/30/16 08:38 Eos # 0.0 10^3/uL (0.0-0.7) 11/30/16 08:38 Baso # 0.0 10^3/uL (0.0-0.1) 11/30/16 08:38 Absolute Nucleated RBC 0.02 x10^3/uL 11/30/16 08:38 Total Counted 100 11/28/16 05:55 Band Neuts % (Manual) 2 % (0-10) 11/28/16 05:55 Metamyelocytes % 1 % (-0) H 11/26/16 12:25 Myelocytes % 3 % (-0) H 11/26/16 12:25 Nucleated RBC % 0.2 /100WBC 11/30/16 08:38 Neutrophils # (Manual) 9.2 10^3/uL (1.5-6.6) H 11/28/16 05:55 Lymphocytes # (Manual) 0.5 10^3/uL (1.5-3.5) L 11/28/16 05:55 Monocytes # (Manual) 0.6 10^3/uL (0.0-1.0) 11/28/16 05:55 Differential Comment MANUAL DIFFERENTIAL 11/28/16 05:55 Manual Slide Review Indicated 11/30/16 08:38 WBC Morphology 2+ VACUOLATION (NORMAL) 1+ SMUDGE CELLS (NORMAL) 11/26/16 12:25 WBC Morphology 2+ VACUOLATION (NORMAL) 1+ SMUDGE CELLS (NORMAL) 11/26/16 12:25 Platelet Estimate DECREASED (<130,000) (NORMAL) 11/30/16 08:38 Platelet Morphology 1+ GIANT PLATELETS (NORMAL) 11/26/16 12:25 RBC Morph Micro Appear 1+ ANISOCYTOSIS (NORMAL) 1+ POLYCHROMASIA (NORMAL) 2+ MACROCYTOSIS (NORMAL) 1+ OVALOCYTES (NORMAL) 11/26/16 12:25 RBC Morph Micro Appear NORMAL APPEARANCE (NORMAL) 11/27/16 04:30 RBC Morph Micro Appear NORMAL APPEARANCE (NORMAL) 11/28/16 05:55 RBC Morph Micro Appear 1+ ANISOCYTOSIS (NORMAL) 11/30/16 08:38 PT 19.0 secs (9.9-12.6) H 11/27/16 11:26 INR 1.7 (0.8-1.2) H 11/27/16 11:26 Bld Gas Analysis Time 11:55 11/26/16 11:55 ABG pH 7.16 (7.35-7.45) L* 11/26/16 11:55 ABG pCO2 75 mmHg (34-45) H* 11/26/16 11:55 ABG pO2 335 mmHg (80-100) H* 11/26/16 11:55 ABG HCO3 26.2 mmol/L (22.0-26.0) H 11/26/16 11:55 ABG Total CO2 28.5 MMOL/L (21.0-29.0) 11/26/16 11:55 ABG O2 Saturation 99 % (94-98) H 11/26/16 11:55 ABG Base Excess -4.3 mmol/L (-2.0-3.0) L 11/26/16 11:55 Elia Test POSITIVE 11/26/16 11:55 VBG pH 7.260 (7.31-7.41) L 11/28/16 05:55 Ionized Calcium 1.04 mmol/L (1.15-1.33) L 11/28/16 05:55 O2 Delivery Device NON REBREATHER MASK 11/26/16 11:55 O2 Liters/Min 10.00 LPM 11/26/16 11:55 FiO2 75.00 11/26/16 11:55 Sodium 133 mmol/L (135-145) L 11/30/16 08:38 Potassium 6.0 mmol/L (3.5-5.0) H* 11/30/16 08:38 Chloride 91 mmol/L (101-111) L 11/30/16 08:38 Carbon Dioxide 26 mmol/L (21-32) 11/30/16 08:38 Anion Gap 16.0 (6-13) H 11/30/16 08:38 BUN 103 mg/dL (6-20) H* 11/30/16 08:38 Creatinine 5.4 mg/dL (0.6-1.2) H 11/30/16 08:38 Estimated GFR (MDRD) 10 (>89) L 11/30/16 08:38 Glucose 112 mg/dL (70-100) H 11/30/16 08:38 Calcium 8.0 mg/dL (8.5-10.3) L 11/30/16 08:38 Ionized Calcium YES 11/28/16 05:55 Phosphorus 4.8 mg/dL (2.5-4.6) H 11/28/16 05:55 Magnesium 2.0 mg/dL (1.7-2.8) 11/28/16 05:55 Total Bilirubin 0.6 mg/dL (0.2-1.0) 11/30/16 08:38 Direct Bilirubin 0.1 mg/dL (0.1-0.5) 11/30/16 08:38 AST 307 IU/L (10-42) H 11/30/16 08:38 ALT 2427 IU/L (10-60) H 11/30/16 08:38 Alkaline Phosphatase 79 IU/L (42-121) 11/30/16 08:38 Ammonia 22.9 umol/L (7-35) 11/27/16 11:26 Troponin I 0.75 ng/mL (<0.49) H* 11/28/16 05:55 Total Protein 6.1 g/dL (6.7-8.2) L 11/30/16 08:38 Albumin 3.6 g/dL (3.2-5.5) 11/30/16 08:38 Globulin 2.5 g/dL (2.1-4.2) 11/30/16 08:38 Albumin/Globulin Ratio 1.5 (1.0-2.2) 11/28/16 05:55 Lipase 36 U/L (22-51) 11/26/16 13:12 Urine Color YELLOW 11/26/16 12:50 Urine Clarity CLEAR (CLEAR) 11/26/16 12:50 Urine pH 6.0 PH (5.0-7.5) 11/26/16 12:50 Ur Specific [place] >=1.030 (1.002-1.030) H 11/26/16 12:50 Urine Protein 100 mg/dL (NEGATIVE) H 11/26/16 12:50 Urine Glucose (UA) NEGATIVE mg/dL (NEGATIVE) 11/26/16 12:50 Urine Ketones NEGATIVE mg/dL (NEGATIVE) 11/26/16 12:50 Urine Occult Blood SMALL (NEGATIVE) H 11/26/16 12:50 Urine Nitrite NEGATIVE (NEGATIVE) 11/26/16 12:50 Urine Bilirubin NEGATIVE (NEGATIVE) 11/26/16 12:50 Urine Urobilinogen 0.2 (NORMAL) E.U./dL (NORMAL) 11/26/16 12:50 Ur Leukocyte Esterase NEGATIVE (NEGATIVE) 11/26/16 12:50 Urine RBC TNTC /HPF (0-5) H 11/26/16 12:50 Urine WBC 11-25 /HPF (0-3) H 11/26/16 12:50 Ur Epithelial Cells MANY Renal Tubular /HPF (<= Few) H 11/26/16 12:50 Ur Squamous Epith Cells MOD Squamous (<= Few) H 11/26/16 12:50 Urine Bacteria Few /HPF (None Seen) 11/26/16 12:50 Ur Microscopic Review INDICATED 11/26/16 12:50 Urine Culture Comments NOT INDICATED 11/26/16 12:50 Acetaminophen < 10 ug/mL (10-30) L 11/26/16 13:12 Hepatitis A IgM Ab NON-REACTIVE (NON-REACTIVE) 11/27/16 05:54 Hep Bs Antigen NON-REACTIVE (NON-REACTIVE) 11/27/16 05:54 Hep B Core IgM Ab NON-REACTIVE (NON-REACTIVE) 11/27/16 05:54 Hepatitis C Antibody NON-REACTIVE (NON-REACTIVE) 11/27/16 05:54 Hep C Ab Signal/Cutoff 0.00 (<1.00) 11/27/16 05:54
[2016-11-30] MEDS ORDERED: DEXTROSE 50% ABBOJECT 25 GM/50 ML SYRINGE IVP SCH (18:49)
[2016-11-30] MEDS ORDERED: INSULIN REGULAR HUMAN 100 UNIT/1 ML 10 ML MDV IVP SCH (18:49)
[2016-11-30] MEDS ORDERED: INSULIN REGULAR HUMAN 100 UNIT/1 ML 10 ML MDV ONE (20:23)
[2016-11-30] MEDS: traZODone 50 MG TABLET PO SCH (21:11)
[2016-11-30] MEDS: PRAMIPEXOLE 0.25 MG TABLET PO SCH (21:11)
[2016-12-01] MEDS ORDERED: SODIUM CHLORIDE FLUSH 0.9% 10 ML SYRINGE IVP ONE ×3 (06:11→13:59)
[2016-12-01] MEDS: PANTOPRAZOLE 40 MG TABLET PO SCH (06:22)
[2016-12-01] MEDS: FUROSEMIDE 40 MG/4 ML VIAL IVP SCH ×2 (06:22→16:02)
[2016-12-01] MEDS ORDERED: predniSONE 20 MG TABLET PO SCH (08:00)
[2016-12-01] MEDS ORDERED: diazePAM 5 MG TABLET PO SCH (09:00)
[2016-12-01] MEDS ORDERED: FAMOTIDINE 20 MG TABLET PO SCH (09:04)
[2016-12-01] MEDS: DOCUSATE SODIUM 250 MG CAPSULE PO SCH (09:20)
[2016-12-01] MEDS: SENNA 8.6 MG TABLET PO SCH (09:25)
[2016-12-01] MEDS: METOPROLOL TARTRATE 25 MG TABLET PO SCH (09:46)
[2016-12-01] MEDS: METHADONE 5 MG TABLET PO SCH (09:47)
[2016-12-01] MEDS: ISOSORBIDE MONONITRATE ER 30 MG TABLET PO SCH (09:48)
[2016-12-01] MEDS: POLYETHYLENE GLYCOL 3350 17 GM PACKET PO SCH (09:49)
--- NOTE | 2016-12-01 14:55 | XRAY Report ---
FRONTAL CHEST: 12/01/2016 CLINICAL INDICATION: Renal failure. COMPARISON: 11/27/2016 FINDINGS: Frontal view of the chest demonstrates an enlarged cardiac silhouette. Pulmonary vascular congestion is present, and left effusion has increased. No pneumothorax. Right jugular central denton ous catheter terminates at the cavoatrial junction. IMPRESSION: INCREASING PULMONARY VASCULAR CONGESTION AND LEFT EFFUSION, COMPATIBLE WITH FLUID OVERLO AD. RIGHT JUGULAR CENTRAL VENOUS CATHETER TERMINATING IN THE CAVOATRIAL JUNCTION. JOB #: [id number] EXT JOB #:[id number]
[2016-12-01 15:32] LABS: ALBUMIN/GLOBULIN RATIO 1.2 (1.0-2.2); BILIRUBIN,TOTAL 0.8 mg/dL (0.2-1.0); CALCIUM 7.9 mg/dL (8.5-10.3); CREATININE 5.7 mg/dL (0.6-1.2); TOTAL PROTEIN 5.9 g/dL (6.7-8.2)
[2016-12-01 15:34] LABS: POTASSIUM 6.3 mmol/L (3.5-5.0)
[2016-12-01 15:37] LABS: BASOPHILS % (AUTO) 0.3 %; HCT - HEMATOCRIT 43.6 % (42.0-52.0); HGB - HEMOGLOBIN 14.2 g/dL (14.0-18.0); LYMPHOCYTES % (AUTO) 1.9 %; MEAN CORPUSCULAR HGB CONC 32.6 g/dL (32.0-36.0); MEAN CORPUSCULAR VOLUME 95.2 fL (80.0-94.0); MEAN PLATELET VOLUME 7.4 fL (7.4-11.4); MONOCYTES % (AUTO) 3.8 %; RED BLOOD COUNT 4.57 10^6/uL (4.70-6.10); RED CELL DISTRIBUTION WIDTH 15.2 % (12.0-15.0); UNCORRECTED WHITE BLOOD COUNT 10.6 x10^3/uL; WHITE BLOOD COUNT 10.6 x10^3/uL (4.8-10.8)
[2016-12-01] MEDS ORDERED: SODIUM CHLORIDE 0.9% 500 ML IV ONE ×2 (15:39→15:44)
[2016-12-01 15:45] LABS: BAND NEUTROPHILS % (MANUAL) 0 %
[2016-12-01] MEDS ORDERED: INSULIN REGULAR HUMAN 100 UNIT/1 ML 10 ML MDV IVP STA (15:45)
[2016-12-01] MEDS ORDERED: DEXTROSE 50% ABBOJECT 25 GM/50 ML SYRINGE IVP ONE (15:46)
[2016-12-01 16:09] LABS: LYMPHOCYTES % (MANUAL) 1 %; NEUTROPHILS % (MANUAL) 93 %; NP AUTO DIFFERENTIAL? YES; NP MAN DIFFERENTIAL? NO; PLATELET ESTIMATE, MANUAL DECREASED (<130,000) (NORMAL); PLATELET MORPHOLOGY NORMAL APPEARANCE (NORMAL); TOTAL CELLS COUNTED 100
[2016-12-01] MEDS ORDERED: SODIUM POLYSTYRENE SULFONATE 15 GM/60 ML BOTTLE PO ONE (17:35)
[2016-12-01 17:37] VITALS: BP 103/56
[2016-12-01] MEDS ORDERED: SODIUM CHLORIDE 0.9% 1,000 ML IV SCH (18:00)
--- NOTE | 2016-12-02 08:52 | DISCHARGE SUMMARY ---
DATE OF ADMISSION: 11/26/2016 DATE OF DISCHARGE: 12/01/2016 HISTORY OF PRESENT ILLNESS: This is a 76-year-old white male with a history of severe COPD on oxygen at night, history of thromboembolism and pulmonary emboli for which he had a filter placed in the IVC . He has a history of a left lower extremity [id number] amputation for chronic thrombophlebitis a ccording to him. The patient has chronic pain and uses methadone as well as narcotics for pain contro l. The patient has had admissions here for COPD exacerbation and workup has showed that he had need f or BiPAP, an echo showed cor pulmonale with moderate pulmonary hypertension. The patient presented now after being found unresponsive in his recliner by his and was brought into the ER by ambulance where he had hypotension, blood pressure of 80 palpable in the ambulance and received 800 mL of saline. In the emergency room, he received Narcan because of severe respiratory d istress, as well as inhaler treatments and he then awoke completely and had no respiratory complaints . The patient did admit that he takes as much as 8 tablets of Tylenol with codeine(222, which he obta ins in [place] without a prescription) and he does this normally daily. HOSPITAL COURSE AND DISCHARGE DIAGNOSES 1. Hypotension. The patient received aggressive hydration for volume replacement and blood pressure i mproved by the following day. The patient did not have an elevated white count or fever to consider s eptic shock. The patient did rule in for an IA with troponins peaking at 1.33, and an echo showed an LVEF of 55% with no definitive regional wall motion abnormalities. The hypotension was felt to be due to narcotic excess, volume depletion, as his exam on admission was consistent with dehydration, tent ing of the skin, dry mucous membranes. Throughout the rest of the hospitalization his blood pressure remained stable at 120-140 over 60-80. 2. Hepatic toxicity. At admission, his liver tests were elevated, ALT 1662, which rob to greater kenia n 5200 on the following day, but then continued to decline and improved to 114 on 12/01/2016. For thi s he received his IV hydration as well as was started on acetylcysteine which was continued throughou t this stay. Tylenol excess was also considered to be an etiology of this liver abnormality. 3. Acute renal failure. The patient was felt to go into ATN after his shocky episode. On the day of a dmission, his creatinine was 1.7, which progressively increased throughout his hospital stay, 2.3, 3. 8, 5.1, 5.4 and on the day of transfer 5.7. His potassium was 5.1-5.5 until yesterday when he had a p otassium of 6.0 and today 6.3. Over the last 48 hours he has needed Kayexalate p.o. as well as insuli n and D50 for treatment of hyperkalemia. He has been on telemetry and there have been no signs of mal ignant dysrhythmias with this hyperkalemia. The patient continued to make urine throughout this hospi pepe stay. In the last 3 days he has developed edema and Lasix was added, however. On 12/01/2016 the p atient was noted to be more lethargic, presumably uremic and he was accepted in transfer to [facility] for higher level of care with nephrology consult and hemodialysis. He was transferred by [facility] ambulance on telemetry from [facility] to [facility]. 4. Chronic obstructive pulmonary disease. After the patient's arousal with Narcan, his pulmonary stat us was stable throughout this admission, he developed a wet cough in the last 48 hours, which was pre sumably due to volume overload, but he was not hypoxic and had oxygen saturations of 95% on 3 liters nasal cannula supplemental. 5. 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 The patient was able to put on hi s leg prosthesis and ambulate minimally in the room until the day of transfer when he was somnolent a nd unable to ambulate. 6. History of thromboembolism and pulmonary embolism. The patient was not on anticoagulation at the t mulu of admission. The patient was on Lovenox for DVT prophylaxis during this admission which was disc ontinued as the renal function became worse. MEDICATIONS AT TIME OF TRANSFER: 1. Normal saline at 60 mL an hour. 2. Colace 250 mg p.o. daily. 3. Pepcid 20 mg p.o. daily. 4. Lasix 40 mg IV b.i.d. 5. DuoNeb inhaler p.r.n. 6. Isosorbide 30 mg p.o. daily (started after ruled in for an IA). 7. Methadone 5 mg p.o. daily (his typical pain medication). 8. Lopressor 12.5 mg p.o. b.i.d. (started after ruled in for an IA). 9. Protonix 40 mg p.o. daily, which was discontinued at the time of transfer due to potential for fur ther renal compromise. 10. IV Solu-Medrol then changed to prednisone 30 mg p.o. daily. 11. Compazine p.r.n. 12. Zantac 150 mg p.o. b.i.d. 13. Senokot p.o. daily. 14. Desyrel 100 mg p.o. q.p.m. (his typical sleeping medication). ALLERGIES 1. CEFAZOLIN. 2. CEPHALEXIN. 3. DOXYCYCLINE. THERE IS A LONGER LIST THAT IS NOT ENTIRELY VISIBLE TO ME. CONDITION AT DISCHARGE: Guarded. ACCEPTING PHYSICIAN: Dr. Hernandez, hospitalist. ACCEPTING DATA CENTER MANAGER: Dr. Matthew Phipps. JOB #: [id number] EXT JOB #:[id number]
== END 2016-12-01 19:15 | disposition short-term general hospital (02) | DRG 917 ==
LOC: EDUNIT# → ED 11:21 → ICU 14:31 → MS3 11-27 19:27
PROVIDERS: ADMIT Internal Medicine; ATTEND Internal Medicine
PROC: 02HV33Z Insertion of Infusion Device into Superior Vena Cava, Percutaneous Approach (ICD-10-PCS; principal; 2016-12-01)
DX: T40.601A Poisoning by unspecified narcotics, accidental (unintentional), initial encounter (principal); R41.0 Disorientation, unspecified; I50.43 Acute on chronic combined systolic (congestive) and diastolic (congestive) heart failure; N30.01 Acute cystitis with hematuria; R09.02 Hypoxemia; J96.22 Acute and chronic respiratory failure with hypercapnia; J96.21 Acute and chronic respiratory failure with hypoxia; F32.9 Major depressive disorder, single episode, unspecified; K72.91 Hepatic failure, unspecified with coma; I21.4 Non-ST elevation (NSTEMI) myocardial infarction; K21.9 Gastro-esophageal reflux disease without esophagitis; F17.200 Nicotine dependence, unspecified, uncomplicated; K76.7 Hepatorenal syndrome; N17.0 Acute kidney failure with tubular necrosis; E87.2 Acidosis; T39.1X1A Poisoning by 4-Aminophenol derivatives, accidental (unintentional), initial encounter; Z89.612 Acquired absence of left leg above knee; E87.70 Fluid overload, unspecified; D69.6 Thrombocytopenia, unspecified; I95.9 Hypotension, unspecified; E86.0 Dehydration; I73.9 Peripheral vascular disease, unspecified; J44.9 Chronic obstructive pulmonary disease, unspecified; G89.29 Other chronic pain; I27.20 Pulmonary hypertension, unspecified; I27.81 Cor pulmonale (chronic); E87.5 Hyperkalemia; I87.2 Venous insufficiency (chronic) (peripheral); F41.9 Anxiety disorder, unspecified; Z79.891 Long term (current) use of opiate analgesic; Z89.512 Acquired absence of left leg below knee; Z99.81 Dependence on supplemental oxygen; Z86.711 Personal history of pulmonary embolism; Z79.899 Other long term (current) drug therapy; Z79.2 Long term (current) use of antibiotics; Z72.0 Tobacco use; Z87.19 Personal history of other diseases of the digestive system; Z90.49 Acquired absence of other specified parts of digestive tract; Z98.890 Other specified postprocedural states
CPT/HCPCS: 36415; 71010; 76700; 76705; 80048; 80053; 80074; 80076; 80307; 81001; 81003; 82140; 82330; 82803; 83690; 83735; 83880; 84100; 84132; 84484; 85025; 85610; 87040; 87086; 87150; 93005; 93306; 94640; 96365; 96375; 99284; 99285

== ENCOUNTER 2016-12-17 09:28 | Outpatient (CLI) | payer MEDICARE, OTHER | END 2016-12-17 09:29 | disposition short-term general hospital (02) | LOC: EMS 09:28 | PROVIDERS: ATTEND Surgery | DX: R06.00 Dyspnea, unspecified (principal) | CPT/HCPCS: A0425; A0427 ==

== ENCOUNTER 2017-02-18 09:39 | Outpatient (CLI) | payer MEDICARE, OTHER | END 2017-02-18 09:40 | disposition short-term general hospital (02) | LOC: EMS 09:39 | PROVIDERS: ATTEND Surgery | DX: M79.604 Pain in right leg (principal); M79.89 Other specified soft tissue disorders | CPT/HCPCS: A0425; A0429; A0888 ==

== ENCOUNTER 2017-02-28 20:20 | Outpatient (CLI) | payer MEDICARE, OTHER | END 2017-02-28 20:21 | disposition short-term general hospital (02) | LOC: EMS 20:20 | PROVIDERS: ATTEND Surgery | DX: R45.851 Suicidal ideations (principal); R52 Pain, unspecified | CPT/HCPCS: A0425; A0429 ==

== ENCOUNTER 2017-03-14 08:00 | Outpatient (CLI) | payer MEDICARE, OTHER ==
[2017-03-15 01:48] LABS: BASOPHILS % (AUTO) 0.3 %; EOSINOPHILS # (AUTO) 0.4 10^3/uL (0.0-0.7); EOSINOPHILS % (AUTO) 5.3 %; HGB - HEMOGLOBIN 12.4 g/dL (14.0-18.0); LYMPHOCYTES % (AUTO) 13.2 %; MEAN CORPUSCULAR HGB CONC 33.3 g/dL (32.0-36.0); MEAN CORPUSCULAR VOLUME 90.1 fL (80.0-94.0); MEAN PLATELET VOLUME 7.7 fL (7.4-11.4); MONOCYTES # (AUTO) 0.5 10^3/uL (0.0-1.0); MONOCYTES % (AUTO) 6.1 %; NEUTROPHILS # (AUTO) 5.9 10^3/uL (1.5-6.6); NEUTROPHILS % (AUTO) 75.1 %; PLT - PLATELET COUNT 259 10^3/uL (130-450); RED BLOOD COUNT 4.14 10^6/uL (4.70-6.10); WHITE BLOOD COUNT 7.8 x10^3/uL (4.8-10.8)
[2017-03-15 01:53] LABS: ALBUMIN 3.1 g/dL (3.2-5.5); ALBUMIN/GLOBULIN RATIO 0.9 (1.0-2.2); ALKALINE PHOSPHATASE 73 IU/L (42-121); ALT ALANINE AMINOTRANSFERASE < 10 IU/L (10-60); AST ASPARTATE AMINOTRANSFERASE 15 IU/L (10-42); BILIRUBIN,TOTAL 0.3 mg/dL (0.2-1.0); BUN - BLOOD UREA NITROGEN 28 mg/dL (6-20); CALCIUM 8.7 mg/dL (8.5-10.3); CARBON DIOXIDE - CO2 29 mmol/L (21-32); CHLORIDE 98 mmol/L (101-111); CREATININE 0.7 mg/dL (0.6-1.2); GFR - MDRD 110 (>89); GLUCOSE 105 mg/dL (70-100); SODIUM 135 mmol/L (135-145); TOTAL PROTEIN 6.4 g/dL (6.7-8.2)
== END 2017-03-14 23:59 | disposition home or self-care (01) ==
LOC: LAB.R 08:00
DX: I48.2 Chronic atrial fibrillation (principal); E87.6 Hypokalemia
CPT/HCPCS: 80053; 85025

== ENCOUNTER 2017-06-03 19:57 | Outpatient (CLI) | payer MEDICARE, OTHER | END 2017-06-03 19:58 | disposition EMS.NT | LOC: EMS 19:57 | PROVIDERS: ATTEND Surgery ==